=== PATIENT | male | born 1940 | race Caucasian/White ===

== ENCOUNTER 2020-11-13 14:41 | Inpatient (IN) ==
[2020-11-13] MEDS ORDERED: CEFEPIME 2,000 MG/20 ML VIAL IV STA (14:55)
[2020-11-13] MEDS ORDERED: ALBUT/IPRATROP 3MG/0.5MG NEB 3 ML VIAL NEB STA (14:55)
[2020-11-13] MEDS ORDERED: ONDANSETRON INJ 2 MG/ML 2 ML VIAL IV STA (15:05)
--- NOTE | 2020-11-13 15:06 | Emergency Department Note ---
Impression & Plan SOB (shortness of breath), Vomiting, Edema of both upper arms, Tracheostomy in place ED Provider Note NAME: ANDI MIDDLETON AGE: 80 SEX: M : 1940 ARRIVES VIA: Ambulance INFORMANT: [Patient][ems] ED PROVIDER(S): [Jama Loomis MD] CHIEF COMPLAINT: Shortness of breath HISTORY OF PRESENT ILLNESS: The patient is an 80-year-old male who is currently living with his son. He has a tracheostomy, a feeding tube and a chronic Dash. The patient states that he was treated for cellulitis, he was hospitalized for this diagnosis. As of late, he has had increasing shortness of breath. He has had some muscle and body pain and he has noticed some edema to his upper extremities. Today, he seemed short of breath. He was brought by ambulance for evaluation. The patient complains of pain all over at present. He has had some shortness of breath and cough. He thinks he has had some fevers. He states that his urine turned color today, it seemed bloody. He also began vomiting today. No known Covid exposures, he did test negative for Covid a few weeks ago. REVIEW OF SYSTEMS: See HPI for pertinent positives and negatives. A total of ten systems were reviewed and were otherwise negative. PMHx/PSHx: See Below SOCIAL HISTORY: See Below. PHYSICAL EXAM: GENERAL: Patient is in no acute distress. HEENT: No acute trauma, normocephalic atraumatic, mucous membranes dry, no nasal congestion, no scleral icterus. NECK: No stridor, there is a tracheostomy in place. LUNGS: There are some crackles and scant wheezing noted bilaterally. No current respiratory distress. HEART: Tachycardic, irregular rhythm, no obvious murmur. ABDOMEN: Soft, nontender, bowel sounds positive, no hernias, no peritonitis. There is a feeding tube in the left upper quadrant. EXTREMITIES: No cyanosis. The patient has chronic skin changes to both lower extremities, no current erythema to suggest lower extremity cellulitis. He does have upper extremity edema from his wrist to his elbows. This is bilateral. NEUROLOGIC: Oriented x 3, no acute motor or sensory deficits, no focal weakness. SKIN: No rash, no jaundice, no diaphoresis. DIFFERENTIAL DIAGNOSIS: Sepsis, UTI, pneumonia, metabolic, electrolyte abnormalities, aspiration, DVT or PE, cardiac sources, intracerebral event, toxicologic, neurologic, as well as other pathologies. EMERGENCY DEPARTMENT COURSE/PROCEDURES: ECG: Indication was weakness and shortness of breath. The ECG shows what appears to be atrial fibrillation. There is an old septal infarct. The rate is 100. There is no ST elevation, no PVCs. The QTc is 477. No old EKGs available for comparison. Continuous Cardiac Monitoring: An order was placed for continuous cardiac monitoring. The monitor shows a rate of 93 with atrial fibrillation. Critical Care Note: I have personally spent 43 minutes of critical care time in the direct management of this patient. This includes bedside care, interpretation of diagnostic studies, and testing, discussion with consultants, patient, and family members, and other required patient management activities. This 43 minutes is in excess of all separately billable procedures. MEDICAL DECISION MAKING: There is no leukocytosis. The patient is anemic but this value is not in need of emergent correction. There is a normal platelet count. There is no coagulopathy. No kidney failure, the BUN was slightly elevated. Lactic acid level was not elevated making sepsis less likely. No concerning liver enzyme elevation. ECG shows atrial fibrillation, no acute ischemia. Cardiac enzyme testing x1 is not consistent with acute cardiac injury. Urinalysis shows contamination from the chronic Dash versus infection. Influenza and Covid testing returned negative. Chest film shows a effusion on the right, no obvious pneumonia. The patient presents with some vomiting, increasing shortness of breath and some dark-colored urine. He received IV cefepime as empiric antibiotic coverage. He was given IV Zofran for his nausea, he was given a DuoNeb through his tracheostomy. Respiratory did come to bedside and dealt with any suctioning issues. Patient is in need of a hospital stay. He has a large effusion on the right which I think may be causing his dyspnea. He was vomiting earlier before arrival and certainly may have aspirated. He does have edema of both upper extremities, the cause is unclear, I have ordered for an ultrasound of both upper arms to rule out DVT--results pending. Patient clearly is in need of a hospital stay. I did speak with case management, I spoke with the patient, the on-call hospitalist was consulted. The patient is currently doing well, his heart rate has decreased, his blood pressure has remained adequate. He is saturating well on his typical respiratory support via tracheostomy. Past Med/Surg History Medical History Atrial fibrillation Tracheostomy in place Social History Smoking Status: Never smoker Feels Safe at Home: Yes Gender Identity: Male Allergies Allergies Allergy/AdvReac Type Severity Reaction Status Date / Time oxycodone AdvReac Intermediate Hallucinati Verified 11/13/20 15:00 ons NARCOTICS AdvReac POSSIBLE Uncoded 11/13/20 16:41 HALLUCINATIONS Home Meds Home Medications Medication Instructions Recorded Confirmed acetaminophen [Tylenol Extra 500 mg PO QID 11/13/20 11/13/20 Strength] albuterol sulfate 2.5 mg INHALATION Q4H PRN 11/13/20 11/13/20 bisacodyl 10 mg FEEDING TUBE QAM PRN 11/13/20 11/13/20 furosemide [Lasix] 40 mg FEEDING TUBE QAM 11/13/20 11/13/20 guaifenesin 200 mg PO TID 11/13/20 11/13/20 ibuprofen 400 mg PO TID PRN 11/13/20 11/13/20 ipratropium-albuterol 3 ml INHALATION QID 11/13/20 11/13/20 methimazole 2.5 mg PO DAILY 11/13/20 11/13/20 ondansetron [Zofran ODT] 4 mg TRANSLINGUAL Q4 PRN 11/13/20 11/13/20 pantoprazole 20 mg PO DAILY 11/13/20 11/13/20 polyethylene glycol 3350 [Miralax] 17 g FEEDING TUBE DAILY PRN 11/13/20 11/13/20 sennosides [senna] 8.6 mg PO HS PRN 11/13/20 11/13/20 sertraline 100 mg FEEDING TUBE DAILY 11/13/20 11/13/20 simethicone 80 mg PO TID PRN 11/13/20 11/13/20 Results & Data (ED) Vital Signs Vital Signs - 24 hr 11/13/20 14:49 11/13/20 14:50 11/13/20 15:13 Temperature 37.1 C Temperature Source Oral Pulse Rate 103 H 105 H Pulse Rate [Right Finger] Pulse Rate from SpO2 Sensor 108 H Pulse Rhythm Regular Pulse Strength Normal Respiratory Rate 20 24 Respiratory Effort / Characteristics Accessory Muscle Use Grunting Labored Respiratory Pattern Regular Blood Pressure 120/60 120/60 Blood Pressure Mean 68 80 Blood Pressure Position Lying Pulse Oximetry 98 96 93 Oxygen Delivery Method Nasal Cannula Mechanical Vent Oxygen Flow Rate 4 Sepsis Recent Fever Within 48 Hours Yes Sepsis New/Unexplained Change in Mental Status No Sepsis Action Taken by Nursing No Action Required 11/13/20 15:16 11/13/20 15:17 11/13/20 15:18 Temperature Temperature Source Pulse Rate 93 H Pulse Rate [Right Finger] 93 H Pulse Rate from SpO2 Sensor Pulse Rhythm Pulse Strength Respiratory Rate 14 Respiratory Effort / Characteristics Spontaneous Labored Short of Breath Respiratory Pattern Blood Pressure Blood Pressure Mean Blood Pressure Position Pulse Oximetry 93 100 93 Oxygen Delivery Method Mechanical Vent Mechanical Vent Mechanical Vent Oxygen Flow Rate 4 4 4 Sepsis Recent Fever Within 48 Hours Sepsis New/Unexplained Change in Mental Status Sepsis Action Taken by Nursing 11/13/20 15:20 11/13/20 15:31 11/13/20 16:00 Temperature Temperature Source Pulse Rate 106 H 97 H 98 H Pulse Rate [Right Finger] Pulse Rate from SpO2 Sensor 103 H 96 H 101 H Pulse Rhythm Pulse Strength Respiratory Rate Respiratory Effort / Characteristics Respiratory Pattern Blood Pressure 102/27 L 106/27 L 102/45 L Blood Pressure Mean 33 45 62 Blood Pressure Position Pulse Oximetry 99 98 99 Oxygen Delivery Method Mechanical Vent Mechanical Vent Oxygen Flow Rate Sepsis Recent Fever Within 48 Hours Sepsis New/Unexplained Change in Mental Status Sepsis Action Taken by Nursing 11/13/20 16:35 Temperature Temperature Source Pulse Rate 93 H Pulse Rate [Right Finger] Pulse Rate from SpO2 Sensor 93 H Pulse Rhythm Pulse Strength Respiratory Rate Respiratory Effort / Characteristics Respiratory Pattern Blood Pressure 102/60 Blood Pressure Mean 69 Blood Pressure Position Pulse Oximetry 99 Oxygen Delivery Method Mechanical Vent Oxygen Flow Rate Sepsis Recent Fever Within 48 Hours Sepsis New/Unexplained Change in Mental Status Sepsis Action Taken by Long-Term Medications Current Medication List: was personally reviewed by me Laboratory Data Attestation: I reviewed the patient's lab results. Result diagrams: 11/13/20 14:55 11/13/20 15:44 Lab Results 11/13/20 11/13/20 11/13/20 Range/Units 13:30 14:55 14:55 WBC 7.20 (4.8-10.8) K/uL RBC 2.98 L (4.7-6.1) M/uL Hgb 9.3 L (14.0-18.0) g/dL Hct 30.0 L (42-52) % MCV 100.7 H (80-100) fL MCH 31.2 (25-34) pg MCHC 31.0 L (32-36) g/dL RDW Std Deviation 53.4 H (36.4-46.3) fL RDW Coeff of Otoniel 14.6 H (11.5-14.5) % Plt Count 168 (130-400) K/uL MPV 11.2 H (7.4-10.4) fL Immature Gran % (Auto) 0.0 % Neut % (Auto) 82.9 % Lymph % (Auto) 9.4 % [place] % (Auto) 6.9 % Eos % (Auto) 0.7 % Baso % (Auto) 0.1 % Neut # (Auto) 5.96 (1.4-6.5) K/uL Lymph # (Auto) 0.68 L (1.2-3.4) K/uL [place] # (Auto) 0.50 (0.11-0.59) K/uL Eos # (Auto) 0.05 (0-0.5) K/uL Baso # (Auto) 0.01 (0-0.2) K/uL Immature Gran # (Auto) 0.00 (0.00-0.02) K/uL PT 10.9 (9.0-12.0) Seconds INR 1.0 (0.9-1.1) APTT 30.8 (21.0-31.0) Seconds PTT Ratio 1.1 Sodium (136-145) mmol/L Potassium (3.5-5.1) mmol/L Chloride (98-107) mmol/L Carbon Dioxide (21-32) mmol/L Anion Gap (3-11) BUN (7-18) mg/dl Creatinine (0.6-1.4) mg/dl Est Cr Clr Drug Dosing ml/min Est GFR ( Amer) Est GFR (Non-Af Amer) BUN/Creatinine Ratio (10-20) Glucose (70-99) mg/dl Lactate (0.4-2.0) mmol/L Calcium (8.5-10.1) mg/dl Magnesium (1.8-2.4) mg/dl Total Bilirubin (0.2-1) mg/dl AST (15-37) U/L ALT (12-78) U/L Alkaline Phosphatase (45-117) U/L Total Creatine Kinase (39-308) U/L Troponin I (0-0.045) ng/ml Total Protein (6.4-8.2) gm/dl Albumin (3.4-5.0) gm/dl Globulin (2.5-4.0) gm/dl Albumin/Globulin Ratio (0.9-2) Urine Color [place] Urine Appearance Turbid A (Clear) Urine pH 7.5 (4.5-7.5) Ur Specific [place] 1.016 (1.000-1.030) Urine Protein 2+ H (Negative) Urine Glucose (UA) Negative (Negative) Urine Ketones Negative (Negative) Urine Blood 3+ H (Negative) Urine Nitrite Negative (Negative) Urine Bilirubin Negative (Negative) Urine Urobilinogen Negative (Negative) Ur Leukocyte Esterase 3+ H (Negative) Urine WBC (Auto) >30 H (0-5) /hpf Urine RBC (Auto) 10-30 H (0-4) /hpf U Hyaline Cast (Auto) 0 (0-5) /lpf U Epithel Cells (Auto) >30 H (0-5) /lpf Urine Bacteria (Auto) 4+ H (Negative) Urine Crystals Calcium Oxalate A (None Prsent) Calcium Oxalate Crystal Present A (None Prsent) Urine Yeast Budding w/ Hyphae A (None Prsent) COVID-19 Eval Order Influ A Molecular Assay (Negative) Influ B Molecular Assay (Negative) SARS-CoV-2, RNA, NAAT (NEGATIVE) 11/13/20 11/13/20 11/13/20 Range/Units 15:04 15:04 15:04 WBC (4.8-10.8) K/uL RBC (4.7-6.1) M/uL Hgb (14.0-18.0) g/dL Hct (42-52) % MCV (80-100) fL MCH (25-34) pg MCHC (32-36) g/dL RDW Std Deviation (36.4-46.3) fL RDW Coeff of Otoniel (11.5-14.5) % Plt Count (130-400) K/uL MPV (7.4-10.4) fL Immature Gran % (Auto) % Neut % (Auto) % Lymph % (Auto) % [place] % (Auto) % Eos % (Auto) % Baso % (Auto) % Neut # (Auto) (1.4-6.5) K/uL Lymph # (Auto) (1.2-3.4) K/uL [place] # (Auto) (0.11-0.59) K/uL Eos # (Auto) (0-0.5) K/uL Baso # (Auto) (0-0.2) K/uL Immature Gran # (Auto) (0.00-0.02) K/uL PT (9.0-12.0) Seconds INR (0.9-1.1) APTT (21.0-31.0) Seconds PTT Ratio Sodium (136-145) mmol/L Potassium (3.5-5.1) mmol/L Chloride (98-107) mmol/L Carbon Dioxide (21-32) mmol/L Anion Gap (3-11) BUN (7-18) mg/dl Creatinine (0.6-1.4) mg/dl Est Cr Clr Drug Dosing ml/min Est GFR ( Amer) Est GFR (Non-Af Amer) BUN/Creatinine Ratio (10-20) Glucose (70-99) mg/dl Lactate (0.4-2.0) mmol/L Calcium (8.5-10.1) mg/dl Magnesium (1.8-2.4) mg/dl Total Bilirubin (0.2-1) mg/dl AST (15-37) U/L ALT (12-78) U/L Alkaline Phosphatase (45-117) U/L Total Creatine Kinase (39-308) U/L Troponin I (0-0.045) ng/ml Total Protein (6.4-8.2) gm/dl Albumin (3.4-5.0) gm/dl Globulin (2.5-4.0) gm/dl Albumin/Globulin Ratio (0.9-2) Urine Color Urine Appearance (Clear) Urine pH (4.5-7.5) Ur Specific [place] (1.000-1.030) Urine Protein (Negative) Urine Glucose (UA) (Negative) Urine Ketones (Negative) Urine Blood (Negative) Urine Nitrite (Negative) Urine Bilirubin (Negative) Urine Urobilinogen (Negative) Ur Leukocyte Esterase (Negative) Urine WBC (Auto) (0-5) /hpf Urine RBC (Auto) (0-4) /hpf U Hyaline Cast (Auto) (0-5) /lpf U Epithel Cells (Auto) (0-5) /lpf Urine Bacteria (Auto) (Negative) Urine Crystals (None Prsent) Calcium Oxalate Crystal (None Prsent) Urine Yeast (None Prsent) COVID-19 Eval [facility] Influ A Molecular Assay Negative (Negative) Influ B Molecular Assay Negative (Negative) SARS-CoV-2, RNA, NAAT NEGATIVE (NEGATIVE) 11/13/20 11/13/20 Range/Units 15:44 15:44 WBC (4.8-10.8) K/uL RBC (4.7-6.1) M/uL Hgb (14.0-18.0) g/dL Hct (42-52) % MCV (80-100) fL MCH (25-34) pg MCHC (32-36) g/dL RDW Std Deviation (36.4-46.3) fL RDW Coeff of Otoniel (11.5-14.5) % Plt Count (130-400) K/uL MPV (7.4-10.4) fL Immature Gran % (Auto) % Neut % (Auto) % Lymph % (Auto) % [place] % (Auto) % Eos % (Auto) % Baso % (Auto) % Neut # (Auto) (1.4-6.5) K/uL Lymph # (Auto) (1.2-3.4) K/uL [place] # (Auto) (0.11-0.59) K/uL Eos # (Auto) (0-0.5) K/uL Baso # (Auto) (0-0.2) K/uL Immature Gran # (Auto) (0.00-0.02) K/uL PT (9.0-12.0) Seconds INR (0.9-1.1) APTT (21.0-31.0) Seconds PTT Ratio Sodium 137 (136-145) mmol/L Potassium 3.9 (3.5-5.1) mmol/L Chloride 100 (98-107) mmol/L Carbon Dioxide 32 (21-32) mmol/L Anion Gap 6.0 (3-11) BUN 50 H (7-18) mg/dl Creatinine 1.14 (0.6-1.4) mg/dl Est Cr Clr Drug Dosing 49.5 ml/min Est GFR ( Amer) 70.0 Est GFR (Non-Af Amer) 60.4 BUN/Creatinine Ratio 43.6 H (10-20) Glucose 103 H (70-99) mg/dl Lactate 0.8 (0.4-2.0) mmol/L Calcium 8.9 (8.5-10.1) mg/dl Magnesium 1.8 (1.8-2.4) mg/dl Total Bilirubin 0.3 (0.2-1) mg/dl AST 21 (15-37) U/L ALT 17 (12-78) U/L Alkaline Phosphatase 105 (45-117) U/L Total Creatine Kinase 22 L (39-308) U/L Troponin I < 0.015 (0-0.045) ng/ml Total Protein 6.8 (6.4-8.2) gm/dl Albumin 2.2 L (3.4-5.0) gm/dl Globulin 4.6 H (2.5-4.0) gm/dl Albumin/Globulin Ratio 0.5 L (0.9-2) Urine Color Urine Appearance (Clear) Urine pH (4.5-7.5) Ur Specific [place] (1.000-1.030) Urine Protein (Negative) Urine Glucose (UA) (Negative) Urine Ketones (Negative) Urine Blood (Negative) Urine Nitrite (Negative) Urine Bilirubin (Negative) Urine Urobilinogen (Negative) Ur Leukocyte Esterase (Negative) Urine WBC (Auto) (0-5) /hpf Urine RBC (Auto) (0-4) /hpf U Hyaline Cast (Auto) (0-5) /lpf U Epithel Cells (Auto) (0-5) /lpf Urine Bacteria (Auto) (Negative) Urine Crystals (None Prsent) Calcium Oxalate Crystal (None Prsent) Urine Yeast (None Prsent) COVID-19 Eval Order Influ A Molecular Assay (Negative) Influ B Molecular Assay (Negative) SARS-CoV-2, RNA, NAAT (NEGATIVE) Administered Medications Discontinued Medications Albuterol (Albut/Ipratrop 3mg/0.5mg Neb 3 Ml Vial) 3 ml NEB NOW STA Stop: 11/13/20 14:56 Last Admin: 11/13/20 15:15 Dose: 3 ml Documented by: [id number] Cefepime HCl (Maxipime) 2,000 mg in 20 mls @ 5 mls/min IV NOW STA; Protocol Stop: 11/13/20 14:58 Last Admin: 11/13/20 15:52 Dose: 5 mls/min Documented by: [id number] Ondansetron HCl (Ondansetron Inj 2 Mg/Ml 2 Ml Vial) 4 mg IV NOW STA Stop: 11/13/20 15:06 Last Admin: 11/13/20 15:37 Dose: 4 mg Documented by: [id number] Imaging Data Radiologist's Impression: XR chest 1V portable CLINICAL HISTORY: SEPSIS COMPARISON STUDY: No previous studies for comparison. FINDINGS: Tracheostomy tube is noted. This may be partially withdrawn. A moderate right pleural effusion is noted. There is a small left pleural effusion. Asymmetric right lung airspace opacity is noted. There is left retrocardiac opacity. No pneumothorax is present. Moderate cardiomegaly is noted with pulmonary vascular congestion. IMPRESSION: 1. Tracheostomy tube visualized, possibly partially withdrawn. This could be correlated with exam. 2. Asymmetric opacification of the right hemithorax, in part due to a moderate right pleural effusion. 3. Bibasilar consolidation. Radiographic follow-up is recommended. 4. Cardiomegaly with pulmonary vascular congestion. Discharge Plan Visit Data Chief Complaint: Shortness of Breath/Dyspnea ED Provider: Jama Loomis Discharge Problem: SOB (shortness of breath), Vomiting, Edema of both upper arms, Tracheostomy in place Patient Disposition: Admitted As Inpatient Condition: Fair Forms Stand Alone Forms: My [facility] Prescriptions Prescriptions: No Action furosemide [Lasix] 40 mg Tablet 40 mg feeding tube QAM RF: 0 sennosides [senna] 8.6 mg Tablet 8.6 mg PO HS PRN (Reason: Constipation) RF: 0 ipratropium-albuterol 0.5 mg-3 mg(2.5 mg base)/3 mL Solution For Nebulization 3 ml INHALATION QID RF: 0 albuterol sulfate 2.5 mg /3 mL (0.083 %) Solution For Nebulization 2.5 mg INHALATION Q4H PRN (Reason: Shortness Of Breath) RF: 0 polyethylene glycol 3350 [Miralax] 17 gram Powder In Packet 17 g feeding tube DAILY PRN (Reason: Constipation) RF: 0 sertraline 100 mg Tablet 100 mg feeding tube DAILY RF: 0 acetaminophen [Tylenol Extra Strength] 500 mg Tablet 500 mg PO QID RF: 0 guaifenesin 200 mg Tablet 200 mg PO TID RF: 0 pantoprazole 20 mg Tablet,Delayed Release (Dr/Ec) 20 mg PO DAILY RF: 0 ibuprofen 200 mg Tablet 400 mg PO TID PRN (Reason: Pain) RF: 0 methimazole 5 mg Tablet 2.5 mg PO DAILY RF: 0 ondansetron [Zofran ODT] 4 mg Tablet,Disintegrating 4 mg translingual Q4 PRN (Reason: Nausea) RF: 0 bisacodyl 5 mg Tablet 10 mg feeding tube QAM PRN (Reason: Constipation) RF: 0 simethicone 80 mg Tablet 80 mg PO TID PRN (Reason: GAS/BLOATING) RF: 0 Referrals Referrals: Renzo Tavarez MD [Primary Care Provider] - Discharge Problem: Vomiting Qualifiers: Vomiting type: unspecified Vomiting Intractability: non-intractable Nausea presence: with nausea Qualified Code(s): R11.2 - Nausea with vomiting, unspecified
[2020-11-13 15:27] LABS: Basophils # (auto) 0.01 K/uL (0-0.2); Basophils % (auto) 0.1 %; Eosinophils # (auto) 0.05 K/uL (0-0.5); Eosinophils % (auto) 0.7 %; Hemoglobin 9.3 g/dL (14.0-18.0); Lymphocytes # (auto) 0.68 K/uL (1.2-3.4); Lymphocytes % (auto) 9.4 %; Mean Corpuscular Hemoglobin 31.2 pg (25-34); Mean Corpuscular Volume 100.7 fL (80-100); Mean Platelet Volume 11.2 fL (7.4-10.4); Monocytes % (auto) 6.9 %; Neutrophils # (auto) 5.96 K/uL (1.4-6.5); Neutrophils % (auto) 82.9 %; Platelet Count 168 K/uL (130-400); RDW Coefficient of Variation 14.6 % (11.5-14.5); RDW Standard Deviation 53.4 fL (36.4-46.3); Red Blood Count 2.98 M/uL (4.7-6.1)
--- NOTE | 2020-11-13 15:35 | XRay Report ---
XR chest 1V portable CLINICAL HISTORY: SEPSIS COMPARISON STUDY: No previous studies for comparison. FINDINGS: Tracheostomy tube is noted. This may be partially withdrawn. A moderate right pleural effus ion is noted. There is a small left pleural effusion. Asymmetric right lung airspace opacity is noted . There is left retrocardiac opacity. No pneumothorax is present. Moderate cardiomegaly is noted with pulmonary vascular congestion. IMPRESSION: 1. Tracheostomy tube visualized, possibly partially withdrawn. This could be correlated with exam. 2. Asymmetric opacification of the right hemithorax, in part due to a moderate right pleural effusion . 3. Bibasilar consolidation. Radiographic follow-up is recommended. 4. Cardiomegaly with pulmonary vascular congestion. ACT 112: Negative or not required by law. Electronically signed by: Jeff Villatoro M.D. 11/13/2020 3:34 PM
[2020-11-13 15:41] LABS: Partial Thromboplastin Ratio 1.1; Partial Thromboplastin Time 30.8 Seconds (21.0-31.0); Prothrombin Time 10.9 Seconds (9.0-12.0)
[2020-11-13 15:48] LABS: Influenza A virus by PCR Negative (Negative); Influenza B virus by PCR Negative (Negative)
[2020-11-13 15:52] LABS: Appearance Urine Turbid (Clear); Bacteria Urine Automated 4+ (Negative); Bilirubin Urine Negative (Negative); Blood Urine 3+ (Negative); Color Urine Orange; Epithelial Cell Urine Auto >30 /lpf (0-5); Glucose Urine UA Negative (Negative); Ketones Urine Negative (Negative); Leukocyte Esterase Urine 3+ (Negative); Nitrite Urine Negative (Negative); Specific Gravity Urine 1.016 (1.000-1.030); Urobilinogen Urine Negative (Negative); WBC Urine Automated >30 /hpf (0-5); pH Urine 7.5 (4.5-7.5)
[2020-11-13 15:56] LABS: Protein Urine 2+ (Negative)
[2020-11-13 16:08] LABS: Calcium Oxalate Crystals Urine Present (None Prsent); Cast Urine Automated 0 /lpf (0-5)
[2020-11-13 16:22] LABS: Alanine Aminotransferase 17 U/L (12-78); Albumin Level 2.2 gm/dl (3.4-5.0); Aspartate Aminotransferase 21 U/L (15-37); BUN Creatinine Ratio 43.6 (10-20); Blood Urea Nitrogen 50 mg/dl (7-18); Calcium 8.9 mg/dl (8.5-10.1); Carbon Dioxide 32 mmol/L (21-32); Chloride 100 mmol/L (98-107); Creatinine Clr Calc Pharmacy 49.5 ml/min; Est GFR (Non-African American) 60.4; Glucose 103 mg/dl (70-99); Magnesium 1.8 mg/dl (1.8-2.4); Potassium 3.9 mmol/L (3.5-5.1); Sodium 137 mmol/L (136-145)
[2020-11-13 16:27] LABS: Albumin Globulin Ratio 0.5 (0.9-2); Alkaline Phosphatase 105 U/L (45-117); Bilirubin,Total 0.3 mg/dl (0.2-1); Creatine Kinase 22 U/L (39-308); Globulin 4.6 gm/dl (2.5-4.0); Total Protein 6.8 gm/dl (6.4-8.2); Troponin I < 0.015 ng/ml (0-0.045)
--- NOTE | 2020-11-13 16:47 | History & Physical Report ---
Date of Service November 13, 2020 Assessment & Plan (1) Acute and chronic respiratory failure with hypoxia: Currently on 4L O2 from baseline 2L at home. ?worsening pleural effusion, aspiration pneumonia, acute on chronic CHF. (2) Edema of both upper arms: This is the patient's main acute complaint. Suspect multifactorial with malnutrition, reduced movement, poor venous and lymphatic drainage. Do not suspect superior vena cava syndrome given lack of facial swelling. (3) Congestive heart failure: Possible mild acute exacerbation of this although family note prior diuresis causing MELANIE. Lasix 20mg IV now. Monitor BMP in AM. (4) Aspiration pneumonia: Suspected given worsening respiratory status after vomiting. Unasyn 3 g IV every 6 hourly. (5) Cellulitis: Suspect bilateral upper extremity swelling secondary to poor venous and lymphatic drainage. Difficult to rule out cellulitis of the right upper extremity however given erythema warmth and swelling here versus purely venous stasis. Cover for cellulitis with Unasyn 3 g IV every 6 hours (6) Atrial fibrillation: Chronic per patient recollection. Unclear why he is not on anticoagulation for this however. Not on rate or rhythm control. 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 Will consult pulmonology for assistance in management of this. (8) Chronic indwelling Dash catheter: No suprapubic pain to suggest UTI. Follow-up urine culture to see if it correlates with any blood culture although I do not suspect a catheter associated UTI on admission. (9) Vomiting: Monitor for recurrence. Patient reports no current nausea. Ondansetron 4 mg IV every 6 hourly as needed (10) Pleural effusion on right: Possible aspiration as he lies on his side versus congestive heart failure. Unclear whether this is acute or chronic as he appears to be close to his baseline - we will request prior imaging from [place]. Lasix 20 mg IV now, continue 40 mg via feeding tube daily. (11) Dysphagia: Clear liquids per patient request. Speech consult. (12) Hyperthyroidism: TSH 0.009 however T4 close to normal. Continue methimazole 2.5 mg p.o. daily. Chronic per patient. (13) Superficial venous thrombosis of left upper extremity: Noted on US doppler. Main acute complaint is edema on right side therefore not contributing towards this. (14) DVT prophylaxis: Will avoid chemical DVT prophylaxis pending reason he is not on anticogulation from notes from [facility]. Poor skin integrity for SCDs. Admission and Anticipated Discharge Date Admission Date: Nov 13, 2020 History of Present Illness Chief Complaint: Shortness of breath, bilateral upper extremity swelling. Primary Care Provider: Renzo Tavarez MD Luis Fernando Sam is an 80 year old male who presents to the ER with shortness of breath, bilateral upper extremity edema with associated pain. He is medically complex and new to this hospital electronic health record with a tracheostomy, feeding tube and Dash catheter after a recent 4-month hospitalization at [facility] (presumably LTAC) of which the discharge summaries are not available on admission. Therefore history is taken from the patient and both sons and is therefore incomplete. Prior to this prolonged hospitalization he reports a history of congestive heart failure (previously refused to see a service dispatcher), phlebitis (on chronic anticoagulation) and hyperthyroidism. Approximately 4 months ago he was hospitalized with a right thigh hematoma which presumably he became septic from. Unclear of the details but possibly had IV fluids causing flash pulmonary edema with right lung collapse leading to intubation. Unclear whether he had surgery to drain the right thigh hematoma but his son has been packing this wound at home. Underwent thoracocentesis with 2 L fluid removed (reportedly not hemothorax). He was unable to be extubated and underwent tracheostomy placement . He continued to be dependent on positive pressure ventilation and was subsequently transferred to [facility] in [place]. He was discharged home approximately 1 month ago to his son's house with his family taking care of his home ventilator. His PCP still manages his medication and they buy their own tube feeds. A home nurse comes in twice a week but they have been actively trying to get more help. Today his main concerns are his tracheostomy (possible has come out slightly, shortness of breath following a vomiting episode at home. His son's (Braulio) main concern is his bilateral upper extremity edema. Allergies Allergy/AdvReac Type Severity Reaction Status Date / Time oxycodone AdvReac Intermediate Hallucinati Verified 11/13/20 15:00 ons NARCOTICS AdvReac POSSIBLE Uncoded 11/13/20 16:41 HALLUCINATIONS Home Medications Medication Instructions Recorded Confirmed Type acetaminophen [Tylenol Extra 500 mg PO QID 11/13/20 11/13/20 History Strength] albuterol sulfate 2.5 mg INHALATION Q4H PRN 11/13/20 11/13/20 History bisacodyl 10 mg FEEDING TUBE QAM PRN 11/13/20 11/13/20 History furosemide [Lasix] 40 mg FEEDING TUBE QAM 11/13/20 11/13/20 History guaifenesin 200 mg PO TID 11/13/20 11/13/20 History ibuprofen 400 mg PO TID PRN 11/13/20 11/13/20 History ipratropium-albuterol 3 ml INHALATION QID 11/13/20 11/13/20 History methimazole 2.5 mg PO DAILY 11/13/20 11/13/20 History ondansetron [Zofran ODT] 4 mg TRANSLINGUAL Q4 PRN 11/13/20 11/13/20 History pantoprazole 20 mg PO DAILY 11/13/20 11/13/20 History polyethylene glycol 3350 [Miralax] 17 g FEEDING TUBE DAILY PRN 11/13/20 11/13/20 History sennosides [senna] 8.6 mg PO HS PRN 11/13/20 11/13/20 History sertraline 100 mg FEEDING TUBE DAILY 11/13/20 11/13/20 History simethicone 80 mg PO TID PRN 11/13/20 11/13/20 History Past Med/Surg History Medical History (Updated 11/14/20 @ 12:53 by Andrea Pino MD) Atrial fibrillation Cellulitis Chronic indwelling Dash catheter Congestive heart failure Hematoma of right thigh History of lipoma Hyperthyroidism Phlebitis Recurrent UTI Tracheostomy in place Surgical History (Updated 11/13/20 @ 22:20 by Andrea Pino MD) History of cholecystectomy History of thoracentesis History of tracheostomy Social History Smoking Status: Never smoker Hx Alcohol Use: No Hx Substance Use: No Preferred Language: Swedish Communication Ability: Effective Communication Ability Comment: Tracheostomy with ability to speak Route Jumper Required: No Beliefs That Will Affect Care: Denominational Denominational Beliefs: Yarsanism Current Living Situation: Family Other Information That Helps Us Care for You: No Feels Safe at Home: Yes Safety Concerns: Feels Safe At This Time Gender Identity: Male Assistive Devices Comment: Home Ventilator Review of Systems Review of Systems: All systems reviewed & are unremarkable except as noted in HPI & below Physical Exam Constitutional: + ill appearing (chronically) and + frail appearing; + not well nourished, no acute distress and no altered mental status Eyes: + anicteric sclerae; normal pupil size ENMT: Mouth: + dry oral mucous membranes Neck: trachea midline Respiratory: Auscultation: + rhonchi (bilaterally, R > L); no wheezes Cardiovascular: Rate/Rhythm: + tachycardic and + irregularly irregular Heart Sounds: no murmur Vessels: no JVD Extremities: + edema (3+ bilateral lower extremities) Gastrointestinal (Abdomen): Inspection/Auscultation: abdomen normal to inspection (Feeding tube in place without surrounding cellulitis) and normal bowel sounds Percussion/Palpation: abdomen soft; abdomen nontender, no guarding and abdomen not rigid Skin: + erythema (and swelling just proximal to right elbow) Neurologic: moves all extremities and awake; no focal motor deficits (generalized weakness, bed bound) and not confused Psychiatric: Orientation: alert and oriented x 3 Results & Data Results & Data ([facility]) Vital Signs (Past 12 Hours) Vital Signs Temp Pulse Pulse Resp BP Pulse Ox 11/13/20 16:35 93 H 102/60 99 11/13/20 16:00 98 H 102/45 L 99 11/13/20 15:31 97 H 106/27 L 98 11/13/20 15:20 106 H 102/27 L 99 11/13/20 15:18 93 11/13/20 15:17 93 H 93 H 14 100 11/13/20 15:16 93 11/13/20 15:13 24 93 11/13/20 14:50 37.1 C 105 H 20 120/60 96 11/13/20 14:49 103 H 120/60 98 Diagnostic Findings XR chest 1V portable IMPRESSION: 1. Tracheostomy tube visualized, possibly partially withdrawn. This could be correlated with exam. 2. Asymmetric opacification of the right hemithorax, in part due to a moderate right pleural effusion. 3. Bibasilar consolidation. Radiographic follow-up is recommended. 4. Cardiomegaly with pulmonary vascular congestion. US venous doppler UE BI IMPRESSION: 1. Limited exam as above. 2. Partially occlusive superficial venous thrombus of the left cephalic vein. ECG Indication: tachycardia Rate (beats per minute): 100 Rhythm: atrial fibrillation Findings: no acute ischemic change Comparison ECG Date: no prior available Code Status & VTE Plan Code Status Full as discussed with the patient VTE Prophylaxis Plan VTE Prophylaxis will be ordered: No Reason for no VTE drug order: Contraindicated (Deferred pending further information from previous hospitalizations) Reason for no VTE mechanical prophylaxis: Treatment not tolerated (Poor skin integrity) PG Care Time/CCT Total # of Minutes Spent Total Time Spent with Patient: Total time spent is greater than 50% in coordination of care (as documented) at patient's floor/unit and/or counseling patient: Coding Level of Care Code 24556 Initial Inpt Care Lvl 3 Diagnoses Acute and chronic respiratory failure with hypoxia J96.21 Edema of both upper arms R60.0 Congestive heart failure I50.9 Aspiration pneumonia J69.0 Cellulitis L03.90 Atrial fibrillation I48.[address] Z93.0 Chronic indwelling Dash catheter Z97.8 Vomiting R11.2 Nausea presence: with nausea Vomiting Intractability: non-intractable Vomiting type: unspecified Pleural effusion on right J90 Dysphagia R13.10 Hyperthyroidism E05.90 Superficial venous thrombosis of left upper extremity I82.612 DVT prophylaxis Z29.9 (1) Vomiting Nausea presence: with nausea Vomiting Intractability: non-intractable Vomit ing type: unspecified Qualified Code(s): R11.2 - Nausea with vomiting, unspecified
--- NOTE | 2020-11-13 17:28 | Ultrasound Report ---
US venous doppler UE BI HISTORY: 80 years-old Male swelling acute pain and swelling of the upper extremities COMPARISON: None TECHNIQUE: Multiple real-time sonographic images of the bilateral upper extremity deep venous structu res were obtained assessing grayscale appearance, color and spectral flow FINDINGS: Limited exam secondary to diffuse subcutaneous edema. Superficial venous thrombus noted within the le ft proximal cephalic vein which is partially occlusive and appears to be long segment for a length of greater than 5 cm. The right internal jugular, ulnar veins, proximal and mid cephalic vein are not d iagnostically visualized. Normal flow and phasicity of the visualized deep venous structures bilmatthieua andrez. IMPRESSION: 1. Limited exam as above. 2. Partially occlusive superficial venous thrombus of the left cephalic vein. ACT 112: Negative or not required by law. The above report was generated using voice recognition software. It may contain grammatical, syntax o r spelling errors. Electronically signed by: Bar Richard M.D. 11/13/2020 5:27 PM
[2020-11-13] MEDS ORDERED: POLYETHYLENE (MIRALAX) 17 GM PACK GT PRN (20:08)
[2020-11-13] MEDS ORDERED: SENNOSIDES 8.8 MG/5 ML UDC PO PRN (20:28)
[2020-11-13] MEDS ORDERED: SIMETHICONE 40 MG/0.6 ML 30ML PO PRN (20:29)
[2020-11-13] MEDS ORDERED: FUROSEMIDE 20 MG in SYRINGE 0 ML IV ONE (20:35)
[2020-11-13] MEDS ORDERED: bisacodyL 10 MG SUPP PR PRN (20:38)
[2020-11-13] MEDS: ALBUT/IPRATROP 3MG/0.5MG NEB 3 ML VIAL INH SCH (20:43)
[2020-11-13] MEDS ORDERED: FUROSEMIDE 40 MG/4 ML VIAL IV ONE (20:45)
[2020-11-13] MEDS ORDERED: APIXABAN 5 MG TABLET PO SCH (21:00)
[2020-11-13 21:10] LABS: Thyroid Stimulating Hormone 0.009 uIu/ml (0.300-4.500)
[2020-11-13] MEDS: AMPICILLIN/SULBACTAM SOD 3,000 MG in 0.9 % SODIUM CHLORIDE 100 ML IV SCH (21:13)
[2020-11-13] MEDS: guaiFENesin SUGAR FREE 200 MG/10 ML UDC PEG SCH (21:15)
[2020-11-13] MEDS: ACETAMINOPHEN 500 MG TAB PO SCH (21:15)
[2020-11-13 21:23] LABS: T4 Free Thyroxine 1.61 ng/dl (0.8-1.6)
[2020-11-13] MEDS: ONDANSETRON INJ 2 MG/ML 2 ML VIAL IV PRN (22:15)
[2020-11-14] MEDS: AMPICILLIN/SULBACTAM SOD 3,000 MG in 0.9 % SODIUM CHLORIDE 100 ML IV SCH ×4 (03:50→21:40)
[2020-11-14 05:27] LABS: Basophils # (auto) 0.01 K/uL (0-0.2); Basophils % (auto) 0.2 %; Eosinophils # (auto) 0.04 K/uL (0-0.5); Eosinophils % (auto) 0.7 %; Hematocrit (blood only) 29.1 % (42-52); Hemoglobin 8.9 g/dL (14.0-18.0); Lymphocytes # (auto) 0.69 K/uL (1.2-3.4); Lymphocytes % (auto) 11.8 %; Mean Corpuscular Hemoglobin 30.4 pg (25-34); Mean Corpuscular Hgb Conc 30.6 g/dL (32-36); Mean Corpuscular Volume 99.3 fL (80-100); Mean Platelet Volume 10.9 fL (7.4-10.4); Monocytes # (auto) 0.48 K/uL (0.11-0.59); Monocytes % (auto) 8.2 %; Neutrophils # (auto) 4.62 K/uL (1.4-6.5); Neutrophils % (auto) 79.1 %; Platelet Count 148 K/uL (130-400); RDW Coefficient of Variation 14.4 % (11.5-14.5); Red Blood Count 2.93 M/uL (4.7-6.1); White Blood Count 5.84 K/uL (4.8-10.8)
[2020-11-14 06:04] LABS: BUN Creatinine Ratio 48.5 (10-20); Calcium 8.4 mg/dl (8.5-10.1); Creatinine Clr Calc Pharmacy 51.1 ml/min; Est GFR (African American) 78.2; Est GFR (Non-African American) 67.5; Potassium 3.4 mmol/L (3.5-5.1)
--- NOTE | 2020-11-14 06:57 | Electrocardiogram Report ---
Test Reason : Blood Pressure : / mmHG Vent. Rate : 100 BPM Atrial Rate : 098 BPM P-R Int : 000 ms QRS Dur : 094 ms QT Int : 370 ms P-R-T Axes : 000 -16 107 degrees QTc Int : 477 ms Atrial fibrillation Low voltage QRS Septal infarct , age undetermined Abnormal ECG No previous ECGs available Confirmed by Irving Noble ([id number]) on 11/14/2020 6:57:01 AM Referred By: REFERRED SELF Confirmed By:Irving Noble
[2020-11-14] MEDS: ALBUT/IPRATROP 3MG/0.5MG NEB 3 ML VIAL INH SCH ×4 (07:15→19:27)
[2020-11-14] MEDS: methIMAzole 5 MG TABLET PO SCH (07:39)
[2020-11-14] MEDS: ACETAMINOPHEN 500 MG TAB PO SCH ×4 (07:41→21:40)
[2020-11-14] MEDS: LANSOPRAZOLE 30 MG SOLTAB NG SCH (07:44)
[2020-11-14] MEDS: guaiFENesin SUGAR FREE 200 MG/10 ML UDC PEG SCH ×3 (07:44→22:06)
--- NOTE | 2020-11-14 10:05 | CT Scan Report ---
CT chest diagnostic wo con CT DOSE: 617.27 mGycm CLINICAL HISTORY: 80 years-old Male with effusion/PNA. Acute shortness of breath with pneumonia TECHNIQUE: Multiaxial CT images of the chest were performed without contrast. A dose lowering techni que was utilized adhering to the principles of ALARA. COMPARISON: None. FINDINGS: The study is limited secondary to positioning and lack of IV contrast. Partially calcified 5.7 x 4.6 cm mass of the right neck is suggestive of thyroid goiter. There are a few enlarged subcari nal lymph nodes measure up to 1.4 cm. Moderate cardiomegaly with small pericardial effusion. Extensiv e coronary artery calcifications. Ectasia of the ascending thoracic aorta, 3.9 cm with mild calcified plaque. Dilated main pulmonary artery, 4.0 cm. Small left and moderate right pleural effusions. No p neumothorax. Mild intralobular septal thickening. Dependent bibasilar consolidation. Additionally, th ere are a few patchy consolidative opacities of the superior segment left lower lobe. There is atelec tasis involving the majority of the right lower lobe. Tracheobronchial secretions. Tracheostomy cannu la turbinates well above the level of the leonides. There are a few nonobstructing right-sided renal calculi measuring up to 4 mm. There is a 1.7 cm calc ulus in the left renal pelvis. No significant associated obstructive uropathy. Cholecystectomy. Gastr ostomy tube. Anasarca. There is edema within the left trapezius distribution with possible intramuscu lar hematoma measuring up to 6.1 x 4.7 cm. Demineralized appearance of the bones. Multiple age-indete rminate compression deformities of the spine, most pronounced at T11. Degenerative changes of the ania ulders and spine. IMPRESSION: 1. Limited exam as above. 2. Cardiomegaly with pulmonary edema, small left and moderate right pleural effusions. 3. Dependent bibasilar consolidation with atelectasis involving the majority of the right lower lobe. 4. Mild nodular consolidative opacities of the superior segment left lower lobe are suspicious for an infectious or inflammatory pneumonitis. 5. Mild subcarinal adenopathy, likely reactive. 6. Probable pulmonary artery hypertension. 7. Bilateral nephrolithiasis includes a 1.6 cm calculus of the left renal pelvis. ACT 112: Negative or not required by law. Electronically signed by: Bar Richard M.D. 11/14/2020 10:03 AM
[2020-11-14] MEDS: SERTRALINE HCL 100 MG TABLET PEG SCH (12:23)
[2020-11-14] MEDS: SIMETHICONE 80 MG CHEW PO PRN ×2 (13:01→23:50)
[2020-11-14] MEDS ORDERED: POTASSIUM CHLORIDE CRTAB 20 MEQ TABCR PO SCH (14:00)
[2020-11-14] MEDS: POTASSIUM CHLORIDE 20 MEQ/15 ML UDC GT SCH ×2 (14:13→21:41)
[2020-11-14] MEDS: ALUMINUM/MAGNESIUM SUSP 30 ML UDC PO PRN (16:03)
[2020-11-14] MEDS ORDERED: PEPTAMEN 1.5 CAL 1,000 ML BAG GT SCH (16:15)
[2020-11-14] MEDS: FUROSEMIDE 40 MG in SYRINGE 0 ML IV SCH (16:28)
--- NOTE | 2020-11-14 17:11 | Pulmonary Consultation ---
Date of Consultation November 14, 2020 Assessment & Plan (1) Pleural effusion on right: CT chest 11/14/2020 personally reviewed: Bilateral pleural effusion, more on the right side, right lower lobe collapse/atelectasis interlobular thickening, elevated right hemidiaphragm cardiomegaly Minimal mediastinal lymphadenopathy, Nonspecific --Vent dependent respiratory failure/trach dependent Multifactorial Etiology could be prolonged intubation on top of heart failure Patient also has right lower lobe collapse/atelectasis with prolonged stay in the hospital Continue with vent support for the time being Aggressive suctioning and chest PT would be recommended Try weaning of the vent as much as possible. COVID-19 PCR 11/13/2020 -ve, nasal MRSA positive --Bilateral pleural effusion More on the right side NT BNP 4871 Etiology is most likely underlying CHF Would recommend continue with diuresis Patient is already on ventilator. If there is no improvement in the pleural effusion with diuresis will think about thoracentesis on the right side Protein calorie malnutrition with albumin of only 2.2 is also playing a role in the effusion as well as anasarca --Right upper extremity swelling Right upper extremity Doppler was ordered but it was a limited study Unsure if DVT has been ruled out --Right lower lobe atelectasis/collapse Aggressive suctioning, continue with mucolytic and expectorant. Would recommend keeping the patient on the left side Plan: Diuresis to keep the patient negative balance. I started the patient on Lasix 40 mg on a daily basis. Monitor BUNs/creatinine If there is no improvement in the pleural effusion after it adequate diuresis will think about thoracentesis For the right lower lobe atelectasis/collapse will increase the PEEP to 8, aggressive suctioning Keep the patient on the left side. Will think about doing a bronchoscopy if there is no improvement. Will need the records from the patient's previous hospitalization to see what procedures were done for the right lower lobe collapse and the true reasoning behind the patient being trach dependent Recommend physical therapy on the patient Nutritional consult should be obtained Urine is dirty but patient has chronic indwelling catheter. Would recommend changing it if not already done during the stay and repeating UA Follow procalcitonin. If it is negative the likelihood of pneumonia is low. Would recommend of the atypical coverage at that time. Please note the above document was generated using voice recognition software. It may contain grammatical, syntax or spelling errors.Any formal questions or concerns about the content, text or information contained within the body of this dictation should be directly addressed to the provider for clarification. (2) Tracheostomy dependence: (3) Ventilator dependent: History of Present Illness Attending Physician: Juvenal Lozano History of Present Illness 80-year-old male with trach dependent respiratory failure connected to a ventilator. Patient has been on the vent since his acute visit 4 months ago at a different hospital. He was subsequently discharged to an LTAC in [place]. He was discharged from there approximately a month ago and has been taken care of by patient's son. Patient also has history of thoracentesis with removal of approximately 2 L of fluid in the right side. Past medical history: Hyperthyroidism on methimazole, heart failure Pulmonary were consulted because of trach dependent respiratory failure as well as pleural effusion. At the time of examination patient was connected to his home ventilator. He was still able to talk through the trach. He was saturating well. He complained of mild shortness of breath. Denied any chest pain, no dizziness. Did complain of generalized body pain. He grimaces even on touching him. His main complaint was swelling in his right hand. He denies any fever or chills at home. History obtained from H&P and ER visit. Allergies Allergy/AdvReac Type Severity Reaction Status Date / Time oxycodone AdvReac Intermediate Hallucinati Verified 11/13/20 15:00 ons NARCOTICS AdvReac POSSIBLE Uncoded 11/13/20 16:41 HALLUCINATIONS Home Medications Medication Instructions Recorded Confirmed Type acetaminophen [Tylenol Extra 500 mg PO QID 11/13/20 11/13/20 History Strength] albuterol sulfate 2.5 mg INHALATION Q4H PRN 11/13/20 11/13/20 History bisacodyl 10 mg FEEDING TUBE QAM PRN 11/13/20 11/13/20 History furosemide [Lasix] 40 mg FEEDING TUBE QAM 11/13/20 11/13/20 History guaifenesin 200 mg PO TID 11/13/20 11/13/20 History ibuprofen 400 mg PO TID PRN 11/13/20 11/13/20 History ipratropium-albuterol 3 ml INHALATION QID 11/13/20 11/13/20 History methimazole 2.5 mg PO DAILY 11/13/20 11/13/20 History ondansetron [Zofran ODT] 4 mg TRANSLINGUAL Q4 PRN 11/13/20 11/13/20 History pantoprazole 20 mg PO DAILY 11/13/20 11/13/20 History polyethylene glycol 3350 [Miralax] 17 g FEEDING TUBE DAILY PRN 11/13/20 11/13/20 History sennosides [senna] 8.6 mg PO HS PRN 11/13/20 11/13/20 History sertraline 100 mg FEEDING TUBE DAILY 11/13/20 11/13/20 History simethicone 80 mg PO TID PRN 11/13/20 11/13/20 History Patient History Medical History (Updated 11/14/20 @ 16:58 by Aki Ghosh MD) Atrial fibrillation Cellulitis Chronic indwelling Dash catheter Congestive heart failure Hematoma of right thigh History of lipoma Hyperthyroidism Phlebitis Recurrent UTI Tracheostomy in place Surgical History History of cholecystectomy History of thoracentesis History of tracheostomy Social History Smoking Status: Never smoker Hx Alcohol Use: No Hx Substance Use: No Preferred Language: Danish Communication Ability: Effective Communication Ability Comment: Tracheostomy with ability to speak Business Intelligence Manager Required: No Beliefs That Will Affect Care: Shinto Shinto Beliefs: Denominational Current Living Situation: Family Other Information That Helps Us Care for You: No Feels Safe at Home: Yes Safety Concerns: Feels Safe At This Time Gender Identity: Male Assistive Devices Comment: Home Ventilator Review of Systems Review of Systems: All systems reviewed & are unremarkable except as noted in HPI & below Physical Exam Physical Exam: Constitutional: No acute distress HEENT: EOMI, PERRLA, positive trach Respiratory system: Decreased air entry bilaterally, more decreased on the right side, positive crackles bilateral lower lobes, no wheeze, no rhonchi CVS: S1-S2 positive Abdomen: Soft, nontender, nondistended, positive bowel sounds x4 Extremities: +2 pulses bilaterally radialis/ dorsalis pedis, +2 pitting edema right upper extremity, +1 left upper extremity and bilateral lower extremity, chronic venous changes appreciated bilateral lower extremity, anasarca Neuro: Awake alert oriented to self and place and time Psych: Normal mood and affect G/U: Positive Dash Skin: Macerated, pigmentation changes appreciated bilateral lower extremity as well as ecchymosis appreciated upper extremity dorsal surface Lymphatic: no cervical or axillary lymphadenopathy Results & Data Results & Data ([facility]) Vital Signs (Past 12 Hours) Vital Signs Temp Pulse Pulse Pulse Resp BP BP 11/14/20 15:41 36.7 C 86 22 162/80 H 11/14/20 15:40 85 18 11/14/20 11:50 79 18 11/14/20 11:36 36.7 C 80 18 146/55 H 11/14/20 07:54 36.3 C L 87 19 105/50 L 11/14/20 07:19 84 18 11/14/20 05:35 84 19 101/69 11/14/20 05:30 79 16 11/14/20 05:18 82 14 94/48 L 11/14/20 05:00 83 20 Pulse Ox 11/14/20 15:41 100 11/14/20 15:40 100 11/14/20 11:50 98 11/14/20 11:36 99 11/14/20 07:54 94 11/14/20 07:19 97 11/14/20 05:35 98 11/14/20 05:30 98 11/14/20 05:18 96 11/14/20 05:00 97 11/14/20 04:37 11/14/20 04:37 PG Care Time/CCT Total # of Minutes Spent Total Time Spent with Patient: Total time spent is greater than 50% in coordination of care (as documented) at patient's floor/unit and/or counseling patient: Coding Level of Care Code 14278 Initial Inpt Care Lvl 3 Diagnoses Pleural effusion on right J90 Tracheostomy dependence Z93.0 Ventilator dependent Z99.11
--- NOTE | 2020-11-14 22:36 | Hospitalist Progress Note ---
Date of Service November 14, 2020 Assessment & Plan (1) Acute and chronic respiratory failure with hypoxia: Patient is admitted with acute on chronic respiratory failure with hypoxia Liley multifactorial but main culprit is from fluid overload and bilateral pleural effusions. Patient is requiring vent support through trach. May require thoracocenthesis. Patient is currently getting diuresis. Will maintain a negative balance. (2) Edema of both upper arms: This is the patient's main acute complaint. Suspect multifactorial with malnutrition, reduced movement, poor venous and lymphatic drainage. Do not suspect superior vena cava syndrome given lack of facial swelling. Will see if this improves as we decrease the edema. (3) Congestive heart failure: Possible mild acute exacerbation of this although family note prior diuresis causing MELANIE. will continue with lasix 40 mg daily. (4) Aspiration pneumonia: Suspected given worsening respiratory status after vomiting. Unasyn 3 g IV every 6 hourly. (5) Cellulitis: Suspect bilateral upper extremity swelling secondary to poor venous and lymphatic drainage. Difficult to rule out cellulitis of the right upper extremity however given erythema warmth and swelling here versus purely venous stasis. Cover for cellulitis with Unasyn 3 g IV every 6 hours (6) Atrial fibrillation: Chronic per patient recollection. Unclear why he is not on anticoagulation for this however. Not on rate or rhythm control. 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 Will consult pulmonology for assistance in management of this. (8) Chronic indwelling Dash catheter: No suprapubic pain to suggest UTI. Follow-up urine culture to see if it correlates with any blood culture although I do not suspect a catheter associated UTI on admission. (9) Vomiting: Monitor for recurrence. Patient reports no current nausea. Ondansetron 4 mg IV every 6 hourly as needed (10) Pleural effusion on right: Possible aspiration as he lies on his side versus congestive heart failure. Unclear whether this is acute or chronic as he appears to be close to his baseline - we will request prior imaging from [place]. awaiting documentation. continue to diurese. (11) Dysphagia: Clear liquids per patient request. Speech consult. (12) Hyperthyroidism: TSH 0.009 however T4 close to normal. Continue methimazole 2.5 mg p.o. daily. Chronic per patient. (13) Superficial venous thrombosis of left upper extremity: Noted on US doppler. Main acute complaint is edema on right side therefore not contributing towards this. (14) DVT prophylaxis: Will avoid chemical DVT prophylaxis pending reason he is not on anticogulation from notes from [facility]. Poor skin integrity for SCDs. Admission and Anticipated Discharge Date Admission Date: November 13, 2020 Subjective Patient reports no new symptoms. Review of Systems Review of Systems: All systems reviewed & are unremarkable except as noted in HPI & below Physical Exam Physical Exam: Constitutional: + ill appearing (chronically) and + frail appearing;no acute distress and no altered mental status Eyes: + anicteric sclerae; normal pupil size ENMT: Mouth: + dry oral mucous membranes Neck: trachea midline Respiratory: Auscultation: + rhonchi (bilaterally, R > L); no wheezes Cardiovascular: Rate/Rhythm: + tachycardic and + irregularly irregular Heart Sounds: no murmur Vessels: no JVD Extremities: + edema (3+ bilateral lower extremities) Gastrointestinal (Abdomen): Inspection/Auscultation: abdomen normal to inspection (Feeding tube in place without surrounding cellulitis) and normal bowel sounds Percussion/Palpation: abdomen soft; abdomen nontender Skin: + mild erythema (and swelling just proximal to right elbow) Neurologic: moves all extremities and awake; no focal motor deficits (generalized weakness, bed bound) and not confused Psychiatric: Orientation: alert and oriented x 3 Results & Data Results & Data ([facility]) Vital Signs (Past 12 Hours) Vital Signs Temp Pulse Pulse Resp BP Pulse Ox 11/14/20 19:28 91 H 16 98 11/14/20 15:41 36.7 C 86 22 162/80 H 100 11/14/20 15:40 85 18 100 11/14/20 11:50 79 18 98 11/14/20 11:36 36.7 C 80 18 146/55 H 99 PG Care Time/CCT Total # of Minutes Spent Total Time Spent with Patient: Total time spent is greater than 50% in coordination of care (as documented) at patient's floor/unit and/or counseling patient: Coding Level of Care Code 82676 Subseq Hosp Care Lvl 3 Diagnoses Acute and chronic respiratory failure with hypoxia J96.21 Edema of both upper arms R60.0 Congestive heart failure I50.9 Aspiration pneumonia J69.0 Cellulitis L03.90 Atrial fibrillation I48.[address] Z93.0 Chronic indwelling Dash catheter Z97.8 Vomiting R11.2 Nausea presence: with nausea Vomiting Intractability: non-intractable Vomiting type: unspecified Pleural effusion on right J90 Dysphagia R13.10 Hyperthyroidism E05.90 Superficial venous thrombosis of left upper extremity I82.612 DVT prophylaxis Z29.9 Time Spent (min) 35 (1) Vomiting Nausea presence: with nausea Vomiting Intractability: non-intractable Vomiting type: unspecified Qualified Code(s): R11.2 - Nausea with vomiting, unspecified
[2020-11-15] MEDS ORDERED: KETOROLAC TROMETHAMINE 15 MG/ML VIAL IV ONE (00:27)
[2020-11-15] MEDS: AMPICILLIN/SULBACTAM SOD 3,000 MG in 0.9 % SODIUM CHLORIDE 100 ML IV SCH ×2 (02:11→08:47)
[2020-11-15] MEDS: ALBUT/IPRATROP 3MG/0.5MG NEB 3 ML VIAL INH SCH ×4 (07:12→19:20)
[2020-11-15] MEDS: FUROSEMIDE 40 MG in SYRINGE 0 ML IV SCH (08:40)
[2020-11-15] MEDS: guaiFENesin SUGAR FREE 200 MG/10 ML UDC PEG SCH ×3 (08:40→20:46)
[2020-11-15] MEDS: POTASSIUM CHLORIDE 20 MEQ/15 ML UDC GT SCH (08:40)
[2020-11-15] MEDS: ACETAMINOPHEN 500 MG TAB PO SCH ×3 (08:46→16:38)
[2020-11-15 09:20] LABS: Basophils # (auto) 0.02 K/uL (0-0.2); Basophils % (auto) 0.3 %; Eosinophils # (auto) 0.04 K/uL (0-0.5); Eosinophils % (auto) 0.7 %; Lymphocytes # (auto) 0.64 K/uL (1.2-3.4); Lymphocytes % (auto) 10.8 %; Mean Corpuscular Hemoglobin 31.1 pg (25-34); Mean Corpuscular Volume 100.3 fL (80-100); Mean Platelet Volume 10.3 fL (7.4-10.4); Monocytes # (auto) 0.52 K/uL (0.11-0.59); Monocytes % (auto) 8.8 %; Neutrophils % (auto) 79.4 %; Platelet Count 140 K/uL (130-400); RDW Coefficient of Variation 14.6 % (11.5-14.5); Red Blood Count 2.89 M/uL (4.7-6.1); White Blood Count 5.92 K/uL (4.8-10.8)
[2020-11-15 10:08] LABS: BUN Creatinine Ratio 37.7 (10-20); Calcium 9.3 mg/dl (8.5-10.1); Creatinine Clr Calc Pharmacy 45.1 ml/min; Est GFR (African American) 67.1; Est GFR (Non-African American) 57.9
[2020-11-15] MEDS: methIMAzole 5 MG TABLET PO SCH (10:22)
[2020-11-15] MEDS: LANSOPRAZOLE 30 MG SOLTAB NG SCH (10:23)
--- NOTE | 2020-11-15 11:45 | Pulmonology Progress Note ---
Date of Service November 15, 2020 Assessment & Plan (1) Pleural effusion on right: CT chest 11/14/2020 personally reviewed: Bilateral pleural effusion, more on the right side, right lower lobe collapse/atelectasis interlobular thickening, elevated right hemidiaphragm cardiomegaly Minimal mediastinal lymphadenopathy, Nonspecific --Vent dependent respiratory failure/trach dependent Multifactorial Etiology could be prolonged intubation on top of heart failure Patient also has right lower lobe collapse/atelectasis with prolonged stay in the hospital Continue with vent support for the time being Aggressive suctioning and chest PT would be recommended Try weaning of the vent as much as possible. COVID-19 PCR 11/13/2020 -ve, nasal MRSA positive PCT: 0.14 c/w atypical coverage for 5 days. Sputum Culture:- gram -ve bacilli. Ucx: Ecoli --Bilateral pleural effusion More on the right side NT BNP 4871 Etiology is most likely underlying CHF Would recommend continue with diuresis Patient is already on ventilator. If there is no improvement in the pleural effusion with diuresis will think about thoracentesis on the right side Protein calorie malnutrition with albumin of only 2.2 is also playing a role in the effusion as well as anasarca --Right upper extremity swelling Right upper extremity Doppler was ordered but it was a limited study Unsure if DVT has been ruled out --Right lower lobe atelectasis/collapse Aggressive suctioning, continue with mucolytic and expectorant. Would recommend keeping the patient on the left side -- Over all prognosis is guarded patient has good mentation but no quality of life Plan: In/Out: -748 Diuresis to keep the patient negative balance. c/w Diuresis. Abx changes to Cefepime for gram-negative bacilli in the sputum. Patient has chronic trach could be colonization but would treat it for the time being. f/u 2D echo. If there is no improvement in the pleural effusion after 48-72 hours of adequate diuresis will think about thoracentesis For the right lower lobe atelectasis/collapse, aggressive suctioning. Keep the patient on the left side. Need records from the patient's previous hospitalization to see what procedures were done for the right lower lobe collapse and the true reasoning behind the patient being trach dependent Please note the above document was generated using voice recognition software. It may contain grammatical, syntax or spelling errors.Any formal questions or concerns about the content, text or information contained within the body of this dictation should be directly addressed to the provider for clarification. (2) Tracheostomy dependence: (3) Ventilator dependent: Admission and Anticipated Discharge Date Admission Date: November 13, 2020 Subjective Patient seen and examined at bedside. Complaining of nausea. Did not throw up. Still complains of difficulty breathing. Denies any chest pain, no headache. Has been afebrile. On Vent. Review of Systems Review of Systems: All systems reviewed & are unremarkable except as noted in Subjective Physical Exam Physical Exam: Constitutional: No acute distress HEENT: EOMI, PERRLA, positive trach size 6 Respiratory system: Decreased air entry bilaterally, more decreased on the right side, positive crackles bilateral lower lobes, no wheeze, no rhonchi CVS: S1-S2 positive Abdomen: Soft, nontender, nondistended, positive bowel sounds x4 Extremities: +2 pulses bilaterally radialis/ dorsalis pedis, +2 pitting edema right upper extremity, +1 left upper extremity and bilateral lower extremity, chronic venous changes appreciated bilateral lower extremity, anasarca Neuro: Awake alert oriented to self and place and time Psych: Normal mood and affect G/U: Positive Dash Lymphatic: no cervical or axillary lymphadenopathy Results & Data Results & Data ([facility]) Vital Signs (Past 12 Hours) Vital Signs Temp Pulse Pulse Pulse Resp BP BP 11/15/20 08:00 11/15/20 07:45 36.7 C 110 H 18 119/56 L 11/15/20 07:23 95 H 18 11/15/20 07:13 95 H 18 11/15/20 04:14 36.7 C 78 16 111/73 11/15/20 01:49 37.5 C 75 16 99/62 L 11/15/20 00:30 96 H 19 11/15/20 00:29 37.4 C 103 H 25 H 96/42 L 11/15/20 00:00 98 H 20 11/14/20 23:45 102 H 18 Pulse Ox Pulse Ox 11/15/20 08:00 97 11/15/20 07:45 96 11/15/20 07:23 98 11/15/20 07:13 98 11/15/20 04:14 97 11/15/20 01:49 96 11/15/20 00:30 97 11/15/20 00:29 97 11/15/20 00:00 97 11/14/20 23:45 98 11/15/20 09:05 11/15/20 09:05 PG Care Time/CCT Total # of Minutes Spent Total Time Spent with Patient: Total time spent is greater than 50% in coordination of care (as documented) at patient's floor/unit and/or counseling patient: Coding Level of Care Code 90477 Subseq Hosp Care Lvl 3 Diagnoses Pleural effusion on right J90 Tracheostomy dependence Z93.0 Ventilator dependent Z99.11
--- NOTE | 2020-11-15 12:19 | XCELERA ---
[id number]
[2020-11-15] MEDS: DOXYCYCLINE HYCLATE 100 MG CAP PO SCH ×2 (13:09→20:36)
[2020-11-15] MEDS: CEFEPIME 2,000 MG in SYRINGE 0 ML IV SCH (13:10)
[2020-11-15] MEDS: SIMETHICONE 80 MG CHEW PO PRN ×2 (13:46→22:35)
[2020-11-15] MEDS: ONDANSETRON INJ 2 MG/ML 2 ML VIAL IV PRN ×2 (13:50→22:14)
--- NOTE | 2020-11-15 14:14 | Communication Note ---
Date of Service: November 15, 2020 Pulmonary addendum: Was called by the nurse the patient was having difficulty on his home with with breathing and he was tachycardic. When I saw him in the morning he was saturating 93% on the same vent settings. I requested the patient to be sent to MICU and be connected to the ventilator which we have from the hospital. Increase the PEEP as needed to bring up the saturation. Case was discussed with Dr. Azevedo Coding Level of Care Code None
[2020-11-15] MEDS: SERTRALINE HCL 100 MG TABLET PEG SCH (15:29)
[2020-11-15] MEDS ORDERED: ACETAMINOPHEN 1000 MG/100 ML IV IV ONE (20:22)
[2020-11-15] MEDS ORDERED: CEFEPIME 1,000 MG in SYRINGE 0 ML IV SCH (21:00)
[2020-11-15] MEDS ORDERED: ACETAMINOPHEN 1,000 MG/100 ML VIAL IV ONE (21:00)
[2020-11-15] MEDS: ALUMINUM/MAGNESIUM SUSP 30 ML UDC PO PRN (22:22)
--- NOTE | 2020-11-15 23:10 | Hospitalist Progress Note ---
Date of Service November 15, 2020 Assessment & Plan (1) Acute and chronic respiratory failure with hypoxia: Patient is admitted with acute on chronic respiratory failure with hypoxia Liley multifactorial but main culprit is from fluid overload and bilateral pleural effusions. Patient is requiring vent support through trach. May require thoracocenthesis. Patient is currently getting diuresis. Will maintain a negative balance. (2) Edema of both upper arms: This is the patient's main acute complaint. Suspect multifactorial with malnutrition, reduced movement, poor venous and lymphatic drainage. Do not suspect superior vena cava syndrome given lack of facial swelling. Will see if this improves as we decrease the edema. (3) Congestive heart failure: Possible mild acute exacerbation of this although family note prior diuresis causing MELANIE. will continue with lasix 40 mg daily. (4) Aspiration pneumonia: unsure of this. HOwever sputum shwoing gram negative bacilli. will place on cefepime (5) Cellulitis: Admtting doctor sspected this. However, does not appear to be cellulitis, likely venous stasis will monitor. (6) Atrial fibrillation: Chronic per patient recollection. Unclear why he is not on anticoagulation for this however. Not on rate or rhythm control. 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 Will consult pulmonology for assistance in management of this. (8) Chronic indwelling Dash catheter: No suprapubic pain to suggest UTI. Follow-up urine culture to see if it correlates with any blood culture although I do not suspect a catheter associated UTI on admission. (9) Vomiting: Monitor for recurrence. Patient reports no current nausea. Ondansetron 4 mg IV every 6 hourly as needed (10) Pleural effusion on right: Possible aspiration as he lies on his side versus congestive heart failure. Unclear whether this is acute or chronic as he appears to be close to his baseline - we will request prior imaging from [place]. Lasix 20 mg IV now, continue 40 mg via feeding tube daily. (11) Dysphagia: Clear liquids per patient request. Speech consult. (12) Hyperthyroidism: TSH 0.009 however T4 close to normal. Continue methimazole 2.5 mg p.o. daily. Chronic per patient. (13) Superficial venous thrombosis of left upper extremity: Noted on US doppler. Main acute complaint is edema on right side therefore not contributing towards this. (14) DVT prophylaxis: Will avoid chemical DVT prophylaxis pending reason he is not on anticogulation from notes from [facility]. Poor skin integrity for SCDs. Admission and Anticipated Discharge Date Admission Date: November 13, 2020 Subjective 80 yo m reports no significant improvement. Review of Systems Review of Systems: All systems reviewed & are unremarkable except as noted in HPI & below Physical Exam Physical Exam: Constitutional: + ill appearing (chronically) and + frail appearing;no acute distress and no altered mental status Eyes: + anicteric sclerae; normal pupil size ENMT: Mouth: + dry oral mucous membranes Neck: trachea midline Respiratory: Auscultation decreasedrhonchi (bilaterally, R > L); no wheezes Cardiovascular: Rate/Rhythm: + tachycardic and + irregularly irregular Heart Sounds: no murmur Vessels: no JVD Extremities: + edema (3+ bilateral lower extremities) Gastrointestinal (Abdomen): Inspection/Auscultation: abdomen normal to inspection (Feeding tube in place without surrounding cellulitis) and normal bowel sounds Percussion/Palpation: abdomen soft; abdomen nontender Skin: + mild erythema (and swelling just proximal to right elbow)/ swelling in lower extremities noted. Neurologic: moves all extremities and awake; no focal motor deficits (generalized weakness, bed bound) and not confused Psychiatric: Orientation: alert and oriented x 3 Results & Data Results & Data ([facility]) Vital Signs (Past 12 Hours) Vital Signs Temp Pulse Pulse Resp BP BP Pulse Ox 11/15/20 22:13 93 H 117/50 L 99 11/15/20 21:23 106 H 141/78 H 100 11/15/20 21:13 103 H 82/43 L 100 11/15/20 20:12 37.2 C 109 H 138/103 H 99 11/15/20 19:17 91 H 130/60 98 11/15/20 18:12 93 H 114/35 L 99 11/15/20 17:12 110 H 122/58 L 99 11/15/20 16:13 99 H 15 103/57 L 99 11/15/20 15:13 102 H 16 93/39 L 98 11/15/20 14:55 14 11/15/20 14:15 37.0 C 11/15/20 14:13 128 H 17 137/43 L 99 11/15/20 13:57 123 H 22 98 11/15/20 11:54 37.5 C 98 H 18 127/83 95 11/15/20 11:44 113 H 20 99 11/15/20 11:40 113 H 20 99 PG Care Time/CCT Total # of Minutes Spent Total Time Spent with Patient: Total time spent is greater than 50% in coordination of care (as documented) at patient's floor/unit and/or counseling patient: Coding Level of Care Code 33244 Subseq Hosp Care Lvl 3 Diagnoses Acute and chronic respiratory failure with hypoxia J96.21 Edema of both upper arms R60.0 Congestive heart failure I50.9 Aspiration pneumonia J69.0 Cellulitis L03.90 Atrial fibrillation I48.[address] Z93.0 Chronic indwelling Dash catheter Z97.8 Vomiting R11.2 Nausea presence: with nausea Vomiting Intractability: non-intractable Vomiting type: unspecified Pleural effusion on right J90 Dysphagia R13.10 Hyperthyroidism E05.90 Superficial venous thrombosis of left upper extremity I82.612 DVT prophylaxis Z29.9 Time Spent (min) 35 (1) Vomiting Nausea presence: with nausea Vomiting Intractability: non-intractable Vomiting type: unspecified Qualified Code(s): R11.2 - Nausea with vomiting, unspecified
--- NOTE | 2020-11-16 00:13 | Procedure Note ---
Procedure Note Date of Service Procedure: [facility] Indwelling Peripherally Inserted IV Catheter Placement Attending: Dr. Azevedo APC: Ji Iverson PA-C Indication: Need for IV Access, Poor Vascular Access Anesthesia: None Verbal consent was obtained from patient prior to performing the procedure. A time-out was completed verifying correct patient, procedure, site, positioning, and implant(s) or special equipment if applicable. Utilizing bedside ultrasound, vascularity of the LEFT upper extremity was assessed. Vessel size was noted for appropriate catheter selection and skin was marked with gentle pressure. Patients LEFT upper extremity was prepped and draped in the usual sterile fashion utilizing chlorhexidine. Ultrasound guidance was used to aid needle placement. A 20 g Endurance Catheter was introduced into the LEFT cephalic vein under direct ultrasound guidance. Guide wire was easily deployed without resistance. Catheter was threaded over the guide wire without resistance and the entire apparatus was removed intact. Good venous blood return was noted in the catheter. The IV catheter was easily flushed with sterile saline flush. Sterile clave was attached to the end of the catheter and good blood return was again noted. Tourniquet was released. StatLock device and sterile dressing were applied. The patient tolerated the procedure well. Blood Loss: Minimal Complications: None Procedural Ultrasound Guidance: Procedure Date: 11/16/2020 Indication: Poor Vascular Access Attending: Dr. Azevedo APC: Ji Iverson PA-C Artery/Veins Identified: YES Access confirmed in Vein with ultrasound: YES Complications: NONE Patient tolerated procedure: WELLNovember 16, 2020 Coding
[2020-11-16] MEDS ORDERED: HYDROmorphone INJ 0.5 MG/0.5 ML SYR IV STA (03:24)
[2020-11-16] MEDS: ALUMINUM/MAGNESIUM SUSP 30 ML UDC PO PRN (03:46)
[2020-11-16] MEDS ORDERED: traZODone HCL 50 MG TAB PO ONE (04:05)
[2020-11-16] MEDS: ONDANSETRON INJ 2 MG/ML 2 ML VIAL IV PRN ×4 (04:30→19:07)
[2020-11-16 05:07] LABS: Basophils # (auto) 0.03 K/uL (0-0.2); Basophils % (auto) 0.4 %; Eosinophils # (auto) 0.04 K/uL (0-0.5); Eosinophils % (auto) 0.5 %; Hematocrit (blood only) 29.1 % (42-52); Hemoglobin 9.1 g/dL (14.0-18.0); Immature Granulocytes # (auto) 0.01 K/uL (0.00-0.02); Immature Granulocytes % (auto) 0.1 %; Lymphocytes # (auto) 0.91 K/uL (1.2-3.4); Lymphocytes % (auto) 10.7 %; Mean Corpuscular Hgb Conc 31.3 g/dL (32-36); Mean Platelet Volume 11.3 fL (7.4-10.4); Monocytes # (auto) 0.73 K/uL (0.11-0.59); Monocytes % (auto) 8.5 %; Neutrophils # (auto) 6.82 K/uL (1.4-6.5); Neutrophils % (auto) 79.8 %; Platelet Count 149 K/uL (130-400); RDW Coefficient of Variation 14.6 % (11.5-14.5); Red Blood Count 2.94 M/uL (4.7-6.1); White Blood Count 8.54 K/uL (4.8-10.8)
[2020-11-16 05:24] LABS: BUN Creatinine Ratio 36.6 (10-20); Calcium 8.5 mg/dl (8.5-10.1); Creatinine Clr Calc Pharmacy 46.2 ml/min; Est GFR (African American) 69.3; Est GFR (Non-African American) 59.8; Magnesium 1.9 mg/dl (1.8-2.4); Phosphorus 2.5 mg/dl (2.5-4.9); Potassium 3.6 mmol/L (3.5-5.1)
[2020-11-16] MEDS: LANSOPRAZOLE 30 MG SOLTAB NG SCH (07:30)
[2020-11-16] MEDS: guaiFENesin SUGAR FREE 200 MG/10 ML UDC PEG SCH ×3 (07:30→19:06)
[2020-11-16] MEDS: DOXYCYCLINE HYCLATE 100 MG CAP PO SCH ×2 (07:30→19:07)
[2020-11-16] MEDS: methIMAzole 5 MG TABLET PO SCH (07:30)
[2020-11-16] MEDS: FUROSEMIDE 40 MG in SYRINGE 0 ML IV SCH (07:31)
--- NOTE | 2020-11-16 08:07 | XRay Report ---
XR chest 1V portable CLINICAL HISTORY: Respiratory failure COMPARISON STUDY: 11/13/2020 FINDINGS: Tracheostomy tube is again visualized. Remains in similar position. It may be partially wit hdrawn. Correlation with clinical examination advocated The heart is enlarged. There is a persistent right pleural effusion with right lung hazy opacity. There is slight coarsening of the markings at th e left medial lung base also unchanged.[ IMPRESSION: 1. Stable appearance of the tracheostomy tube 2. Persistent cardiomegaly 2. Persistent right pleural effusion 4. Persistent basilar airspace opacities ACT 112: Negative or not required by law. Electronically signed by: Lior Colmenares M.D. 11/16/2020 8:05 AM
[2020-11-16] MEDS: ALBUT/IPRATROP 3MG/0.5MG NEB 3 ML VIAL INH SCH ×4 (08:13→23:32)
[2020-11-16] MEDS: ACETAMINOPHEN 500 MG TAB PO SCH ×4 (09:49→19:06)
[2020-11-16] MEDS: CEFEPIME 2,000 MG in SYRINGE 0 ML IV SCH (12:42)
[2020-11-16] MEDS: SERTRALINE HCL 100 MG TABLET PEG SCH (12:55)
[2020-11-16] MEDS ORDERED: IBUPROFEN 200 MG TAB PO STA (13:24)
[2020-11-16] MEDS ORDERED: IBUPROFEN 200 MG/10 ML UDC GT ONE (14:00)
--- NOTE | 2020-11-16 14:08 | Pulmonology Progress Note ---
Date of Service November 16, 2020 Assessment & Plan (1) Pleural effusion on right: CT chest 11/14/2020 personally reviewed: Bilateral pleural effusion, more on the right side, right lower lobe collapse/atelectasis interlobular thickening, elevated right hemidiaphragm cardiomegaly Minimal mediastinal lymphadenopathy, Nonspecific --Vent dependent respiratory failure/trach dependent Multifactorial Etiology could be prolonged intubation on top of heart failure Patient also has right lower lobe collapse/atelectasis with prolonged stay in the hospital Continue with vent support for the time being Aggressive suctioning and chest PT would be recommended Try weaning of the vent as much as possible. COVID-19 PCR 11/13/2020 -ve, nasal MRSA positive PCT: 0.14 c/w atypical coverage for 5 days. Sputum Culture:- gram -ve bacilli. --Bilateral pleural effusion More on the right side NT BNP 4871 Etiology is most likely underlying CHF Would recommend continue with diuresis Patient is already on ventilator. If there is no improvement in the pleural effusion with diuresis will think about thoracentesis on the right side Protein calorie malnutrition with albumin of only 2.2 is also playing a role in the effusion as well as anasarca --Right upper extremity swelling Right upper extremity Doppler was ordered but it was a limited study Unsure if DVT has been ruled out --Right lower lobe atelectasis/collapse Aggressive suctioning, continue with mucolytic and expectorant. Would recommend keeping the patient on the left side -- Over all prognosis is guarded patient has good mentation but no quality of life Plan: In/Out: -957 Mucous plug was suctioned out yesterday. Diuresis to keep the patient negative balance. c/w Diuresis. There is no improvement in the pleural effusion in the next 24-48 hours will think about thoracentesis. Consent in the chart For the right lower lobe atelectasis/collapse, aggressive suctioning. Keep the patient on the left side. Need records from the patient's previous hospitalization to see what procedures were done for the right lower lobe collapse and the true reasoning behind the patient being trach dependent Please note the above document was generated using voice recognition software. It may contain grammatical, syntax or spelling errors.Any formal questions or concerns about the content, text or information contained within the body of this dictation should be directly addressed to the provider for clarification. (2) Tracheostomy dependence: (3) Ventilator dependent: Admission and Anticipated Discharge Date Admission Date: November 13, 2020 Subjective Patient seen and examined at bedside. No acute distress. Later last evening patient was having high PEEP and with the respirator distress. We were unable to detect the compliance the PEEP and the plateau on his home vent. Patient was transferred to ICU so that he can be managed there. At the time of examination patient states that he is feeling much better. Actually is asking to go home. No headache, no nausea or vomiting. Still complains of generalized body pain. Review of Systems Review of Systems: All systems reviewed & are unremarkable except as noted in Subjective Physical Exam Physical Exam: Constitutional: No acute distress HEENT: EOMI, PERRLA, positive trach size 6 Respiratory system: Decreased air entry bilaterally, more decreased on the right side, positive crackles bilateral lower lobes, no wheeze, no rhonchi CVS: S1-S2 positive Abdomen: Soft, nontender, nondistended, positive bowel sounds x4 Extremities: +2 pulses bilaterally radialis/ dorsalis pedis, +2 pitting edema right upper extremity, +1 left upper extremity and bilateral lower extremity, chronic venous changes appreciated bilateral lower extremity, anasarca Neuro: Awake alert oriented to self and place and time Psych: Normal mood and affect G/U: Positive Dash Lymphatic: no cervical or axillary lymphadenopathy Results & Data Results & Data ([facility]) Vital Signs (Past 12 Hours) Vital Signs Temp Pulse Pulse Resp BP BP Pulse Ox 11/16/20 12:13 93 H 133/36 L 98 11/16/20 11:13 94 H 112/61 97 11/16/20 10:55 90 21 100 11/16/20 10:19 99 H 91/40 L 95 11/16/20 10:13 99 H 79/56 L 96 11/16/20 09:13 101 H 103/19 L 98 11/16/20 08:54 96 H 11/16/20 08:22 37.1 C 95 H 15 100/64 100 11/16/20 08:13 88 16 97 11/16/20 06:13 82 121/44 L 100 11/16/20 05:13 90 107/49 L 98 11/16/20 04:13 95 H 115/72 97 11/16/20 04:00 37.0 C 11/16/20 03:38 103 H 28 H 97 11/16/20 03:15 104 H 110/43 L 97 11/16/20 02:13 98 H 116/37 L 98 11/16/20 02:06 37.0 C 11/16/20 04:08 11/16/20 04:08 PG Care Time/CCT Total # of Minutes Spent Total Time Spent with Patient: Total time spent is greater than 50% in coordination of care (as documented) at patient's floor/unit and/or counseling patient: Coding Level of Care Code 65333 Subseq Hosp Care Lvl 3 Diagnoses Pleural effusion on right J90 Tracheostomy dependence Z93.0 Ventilator dependent Z99.11
[2020-11-16] MEDS: ACETYLCYSTEINE 20% INHAL SOLN 4ML ***DISPENSED BY RESP. INH SCH ×2 (15:33→23:32)
[2020-11-16] MEDS: LIDOCAINE 5% 1 PATCH TD SCH (17:05)
[2020-11-16] MEDS ORDERED: MIDODRINE HCL 10 MG TAB PO STA (18:41)
[2020-11-16] MEDS ORDERED: ACETYLCYSTEINE 20% INHAL SOLN 4ML ***DISPENSED BY RESP. INH SCH (19:00)
[2020-11-16] MEDS: FAMOTIDINE 20 MG TAB PO SCH (19:06)
[2020-11-16] MEDS ORDERED: ACETAMINOPHEN 1,000 MG/100 ML VIAL IV ONE (21:00)
--- NOTE | 2020-11-16 21:51 | Hospitalist Progress Note ---
Date of Service November 16, 2020 Assessment & Plan (1) Acute and chronic respiratory failure with hypoxia: Patient is admitted with acute on chronic respiratory failure with hypoxia Liley multifactorial but main culprit is from fluid overload and bilateral pleural effusions. Patient is requiring vent support through trach. May require thoracocenthesis. Patient is currently getting diuresis. Will maintain a negative balance. Updated son on phone. (2) Hypotension: Patient became hypotensive today, consulted bog cutter, ordered midodrine 10 mg one time dose. May require pressors (3) Edema of both upper arms: This is the patient's main acute complaint. Suspect multifactorial with malnutrition, reduced movement, poor venous and lymphatic drainage. Do not suspect superior vena cava syndrome given lack of facial swelling. Will see if this improves as we decrease the edema. (4) Congestive heart failure: Possible mild acute exacerbation of this although family note prior diuresis causing MELANIE. will continue with lasix 40 mg daily. (5) Aspiration pneumonia: unsure of this. HOwever sputum shwoing gram negative bacilli. will place on cefepime (6) Cellulitis: Admtting doctor sspected this. However, does not appear to be cellulitis, likely venous stasis will monitor. (7) Atrial fibrillation: Chronic per patient recollection. Unclear why he is not on anticoagulation for this however. Not on rate or rhythm control. (8) Tracheostomy in place: Patient request change of this. Will consult pulmonology for assistance in management of this. (9) Chronic indwelling Dash catheter: No suprapubic pain to suggest UTI. Follow-up urine culture to see if it correlates with any blood culture although I do not suspect a catheter associated UTI on admission. (10) Vomiting: Monitor for recurrence. Patient reports no current nausea. Ondansetron 4 mg IV every 6 hourly as needed (11) Pleural effusion on right: Possible aspiration as he lies on his side versus congestive heart failure. Unclear whether this is acute or chronic as he appears to be close to his baseline - we will request prior imaging from [facility]. awaiting documentation. continue to diurese. (12) Dysphagia: Clear liquids per patient request. Speech consult. (13) Hyperthyroidism: TSH 0.009 however T4 close to normal. Continue methimazole 2.5 mg p.o. daily. Chronic per patient. (14) Superficial venous thrombosis of left upper extremity: Noted on US doppler. Main acute complaint is edema on right side therefore not contributing towards this. (15) DVT prophylaxis: Will avoid chemical DVT prophylaxis pending reason he is not on anticogulation from notes from [facility]. Poor skin integrity for SCDs. Admission and Anticipated Discharge Date Admission Date: November 13, 2020 Subjective Patient reports having pain in his right chest. Painful to palpation. Review of Systems Review of Systems: All systems reviewed & are unremarkable except as noted in HPI & below Physical Exam Physical Exam: Constitutional: + ill appearing (chronically) and + frail appearing;no acute distress and no altered mental status Eyes: + anicteric sclerae; normal pupil size ENMT: Mouth: + dry oral mucous membranes Neck: trachea midline Respiratory: Auscultation decreasedrhonchi (bilaterally, R > L); no wheezes Cardiovascular: Rate/Rhythm: + tachycardic and + irregularly irregular Heart Sounds: no murmur Vessels: no JVD Extremities: + edema (3+ bilateral lower extremities) Gastrointestinal (Abdomen): Inspection/Auscultation: abdomen normal to inspection (Feeding tube in place without surrounding cellulitis) and normal bowel sounds Percussion/Palpation: abdomen soft; abdomen nontender Skin: + mild erythema (and swelling just proximal to right elbow)/ swelling in lower extremities noted. tenderness to 3 intercostal space midclavicular line. Neurologic: moves all extremities and awake; no focal motor deficits (generalized weakness, bed bound) and not confused Psychiatric: Orientation: alert and oriented x 3 Results & Data Results & Data ([facility]) Vital Signs (Past 12 Hours) Vital Signs Temp Pulse Resp BP Pulse Ox 11/16/20 19:13 102 H 97/57 L 94 11/16/20 19:05 109 H 20 97 11/16/20 18:56 109 H 98/45 L 97 11/16/20 18:34 109 H 86/46 L 96 11/16/20 18:16 116 H 52/35 L 98 11/16/20 18:13 112 H 89/34 L 98 11/16/20 18:00 119 H 96 11/16/20 17:25 102 H 105/36 L 96 11/16/20 17:13 117 H 84/43 L 95 11/16/20 16:15 37.1 C 11/16/20 16:13 105 H 75/62 L 87 L 11/16/20 15:32 90 14 98 11/16/20 15:13 88 92/50 L 97 11/16/20 14:13 103 H 104/71 97 11/16/20 12:13 37.0 C 93 H 133/36 L 98 11/16/20 11:13 94 H 112/61 97 11/16/20 10:55 90 21 100 11/16/20 10:19 99 H 91/40 L 95 11/16/20 10:13 99 H 79/56 L 96 PG Care Time/CCT Total # of Minutes Spent Total Time Spent with Patient: Total time spent is greater than 50% in coordination of care (as documented) at patient's floor/unit and/or counseling patient: Coding Level of Care Code 45088 Subseq Hosp Care Lvl 3 Diagnoses Acute and chronic respiratory failure with hypoxia J96.21 Hypotension I95.9 Edema of both upper arms R60.0 Congestive heart failure I50.9 Aspiration pneumonia J69.0 Cellulitis L03.90 Atrial fibrillation I48.[address] Z93.0 Chronic indwelling Dash catheter Z97.8 Vomiting R11.2 Nausea presence: with nausea Vomiting Intractability: non-intractable Vomiting type: unspecified Pleural effusion on right J90 Dysphagia R13.10 Hyperthyroidism E05.90 Superficial venous thrombosis of left upper extremity I82.612 DVT prophylaxis Z29.9 Time Spent (min) 35 (1) Vomiting Nausea presence: with nausea Vomiting Intractability: non-intractable Vomiting type: unspecified Qualified Code(s): R11.2 - Nausea with vomiting, unspecified
[2020-11-17 05:19] LABS: Basophils # (auto) 0.02 K/uL (0-0.2); Basophils % (auto) 0.3 %; Eosinophils # (auto) 0.05 K/uL (0-0.5); Eosinophils % (auto) 0.7 %; Hematocrit (blood only) 26.2 % (42-52); Hemoglobin 8.3 g/dL (14.0-18.0); Immature Granulocytes # (auto) 0.01 K/uL (0.00-0.02); Immature Granulocytes % (auto) 0.1 %; Lymphocytes # (auto) 0.59 K/uL (1.2-3.4); Lymphocytes % (auto) 7.8 %; Mean Corpuscular Hemoglobin 31.2 pg (25-34); Mean Corpuscular Hgb Conc 31.7 g/dL (32-36); Mean Corpuscular Volume 98.5 fL (80-100); Mean Platelet Volume 11.5 fL (7.4-10.4); Monocytes % (auto) 7.9 %; Neutrophils # (auto) 6.34 K/uL (1.4-6.5); Neutrophils % (auto) 83.2 %; Platelet Count 133 K/uL (130-400); RDW Coefficient of Variation 14.9 % (11.5-14.5); RDW Standard Deviation 53.6 fL (36.4-46.3); Red Blood Count 2.66 M/uL (4.7-6.1); White Blood Count 7.61 K/uL (4.8-10.8)
[2020-11-17 05:46] LABS: BUN Creatinine Ratio 35.7 (10-20); Calcium 8.4 mg/dl (8.5-10.1); Creatinine Clr Calc Pharmacy 42.9 ml/min; Est GFR (African American) 63.2; Est GFR (Non-African American) 54.6; Magnesium 1.8 mg/dl (1.8-2.4); Phosphorus 2.4 mg/dl (2.5-4.9); Potassium 3.4 mmol/L (3.5-5.1)
[2020-11-17] MEDS: ALBUT/IPRATROP 3MG/0.5MG NEB 3 ML VIAL INH SCH ×3 (07:16→23:20)
[2020-11-17] MEDS: ACETYLCYSTEINE 20% INHAL SOLN 4ML ***DISPENSED BY RESP. INH SCH (07:17)
[2020-11-17] MEDS: LIDOCAINE 5% 1 PATCH TD SCH ×2 (07:54→19:11)
[2020-11-17] MEDS: guaiFENesin SUGAR FREE 200 MG/10 ML UDC PEG SCH ×3 (07:55→20:29)
[2020-11-17] MEDS: methIMAzole 5 MG TABLET PO SCH (07:55)
[2020-11-17] MEDS: LANSOPRAZOLE 30 MG SOLTAB NG SCH (07:55)
[2020-11-17] MEDS: FAMOTIDINE 20 MG TAB PO SCH ×2 (07:55→20:28)
[2020-11-17] MEDS: DOXYCYCLINE HYCLATE 100 MG CAP PO SCH (07:57)
[2020-11-17] MEDS: FUROSEMIDE 40 MG in SYRINGE 0 ML IV SCH (08:00)
[2020-11-17] MEDS: ACETAMINOPHEN 500 MG TAB PO SCH ×4 (08:00→20:31)
[2020-11-17] MEDS: ONDANSETRON INJ 2 MG/ML 2 ML VIAL IV PRN ×2 (08:00→14:27)
--- NOTE | 2020-11-17 08:10 | XRay Report ---
XR chest 1V portable CLINICAL HISTORY: Abnormal chest x-ray. Follow-up study COMPARISON STUDY: 11/16/2020 FINDINGS: The heart remains enlarged. The tracheostomy tube remains unchanged in position. There is p ersistent right pleural effusion with diffuse hazy opacity the right lung. There is persistent coarse divine of the markings the left medial lung base also unchanged.[ IMPRESSION: 1. Stable findings. Persistent cardiomegaly. Persistent right pleural effusion. Persistent basilar ai rspace opacities. ACT 112: Negative or not required by law. Electronically signed by: Lior Colmenares M.D. 11/17/2020 8:09 AM
--- NOTE | 2020-11-17 08:48 | Critical Care Progress Note ---
Date of Service November 17, 2020 Assessment & Plan (1) Ventilator dependent: Impression: 80-year-old male admitted to the hospital 11/13/2020 with. Patient has a recent admission from [facility] for septic shock secondary to infected hematoma of the thigh. During that hospitalization he was unable to be extubated and underwent percutaneous tracheostomy placement. He was initially managed on the floor but developed increasing work of breathing and shortness of breath and was transferred to the ICU for ventilatory management. 24-hour events: Patient continues to have issues with diffuse pain.. He has been maintained on assist control ventilation throughout the night. Recommendations: 1. Neurologic: The patient continues to have fairly diffuse pain issues. We will start Neurontin to see if this offers him some improvement from potential neuropathic pain. 2. Pulmonary: Persistent ventilatory failure: The patient uses the ventilator most of the time while he is at home. Attempted a trial of pressure support ventilation this morning however the patient states that he is more short of breath and feels more comfortable on an AC mode. He has a #6 cuffed tube in. Given the fact that he requires persistent positive airway pressure ventilation, I am reluctant to downsize his tube or change it to a potential fenestrated tube. We will continue trials to see if we can optimize his pulmonary status. LTAC may be a consideration but the patient wishes to pursue going home. Unclear if he has adequate support to make this a reliable goal. Given his difficulty weaning from the ventilator, I think sampling the effusion is reasonable. He will undergo thoracentesis under ultrasound guidance today. 3. Cardiovascular: History of heart failure but echocardiogram performed during this admission showed normal systolic function with LVH and mild dilatation of the right ventricle, left atrium, and right atrium. No significant aortic valvular disease with moderate mitral regurgitation. IVC was severely dilated. Tolerating diuresis currently and would continue to try afterload reduction to optimize his MR. He is not a surgical candidate and doubt he would be a ca ndidate for mitral clip. 4. Infectious disease: E. coli from urine and stenotrophomonas from the lung. Will transition to Levaquin which should be adequate to cover both pathogens. Other antibiotics will be discontinued. His white count is normal. No fevers. 5. GI: The patient is tolerating p.o. Continue nutritional supplementation. He is significantly deconditioned. Prealbumin 6. Endocrine: On methimizole. Continue to follow at this point time. 7. Heme-onc: Mild anemia. No evidence of acute blood loss. Continue to follow clinically. No indication for transfusion. 8. Renal: Hypokalemia, hypocalcemia, and hypophosphatemia. Electrolyte replacement protocols will be initiated. Patient will require physical therapy and occupational therapy if he wishes to improve. If not, palliative care may be an option. We will discuss with staffing if the patient can get his home ventilator. This may enable the patient to transition out of the intensive care unit and possibly to home. The patient is critically ill but it is unclear how much of this acute episode may be reversible. A total of 35 minutes critical care time was spent evaluating managing and stabilizing this patient. (2) Tracheostomy dependence: (3) Superficial venous thrombosis of left upper extremity: (4) Pleural effusion on right: (5) Acute and chronic respiratory failure with hypoxia: Admission and Anticipated Discharge Date Admission Date: November 13, 2020 Subjective Patient seen and examined. Discussed with critical care staff as well as pulmonary staff and ICU nurse at bedside as well as patient bedside. He continues to complain of fairly significant leg pain but when questioned further states his pain is all over everywhere and has been present for quite some time. He remains on the ventilator. He is hemodynamically stable but tachycardic this morning. His x-ray shows no significant change in the pleural effusion. Review of Systems Review of Systems: All systems reviewed & are unremarkable except as noted in HPI & below Physical Exam Constitutional: + cachectic; no acute distress ENMT: 6. Cuffed trach in place Neck: trachea midline, no thyromegaly Respiratory: normal respiratory effort, lungs clear to auscultation Cardiovascular: RRR, no murmur, no edema Gastrointestinal (Abdomen): normal bowel sounds, soft, nontender, no hepatosplenomegaly Musculoskeletal: Extremities: extremities normal to inspection Skin: no rashes, warm and dry Neurologic: Nonfocal exam Lymphatic: no cervical lymphadenopathy Results & Data Results & Data ([facility]) Vital Signs (Past 12 Hours) Vital Signs Temp Pulse Resp BP Pulse Ox 11/17/20 07:15 104 H 26 H 94 11/17/20 04:13 83 98/47 L 96 11/17/20 04:00 36.8 C 11/17/20 03:13 90 113/60 97 11/17/20 02:13 90 106/47 L 97 01/11/21 01:28 92 H 97/43 L 93 11/17/20 01:13 92 H 75/26 L 95 11/17/20 00:13 90 96/57 L 96 11/17/20 00:00 37.2 C 11/16/20 23:32 80 14 98 11/16/20 23:13 90 102/79 100 11/16/20 22:13 88 114/61 100 11/16/20 21:31 85 108/57 L 98 11/16/20 21:13 81 80/27 L 98 Laboratory Results 11/17/20 04:46 11/17/20 04:46 Sputum culture growing stenotrophomonas sensitive to ceftaz, Levaquin, and Bactrim Urine culture growing E. coli resistant to ampicillin Unasyn and Bactrim I/O: -797 Diagnostic Findings Chest x-ray was independently reviewed. Persistent haziness in the right hemithorax consistent with pleural effusion. Tracheostomy in good position. Coding Level of Care Code Critical Care 1st 30-74 mins Diagnoses Ventilator dependent Z99.11 Tracheostomy dependence Z93.0 Superficial venous thrombosis of left upper extremity I82.612 Pleural effusion on right J90 Acute and chronic respiratory failure with hypoxia J96.21
[2020-11-17] MEDS ORDERED: levoFLOXacin/D5W 500 MG/100 ML BAG IV SCH (09:00)
[2020-11-17] MEDS ORDERED: GABAPENTIN 100 MG CAP PO SCH (09:00)
[2020-11-17] MEDS: GABAPENTIN 250 MG/5 ML 470 ML BTL PO SCH ×3 (11:10→20:31)
--- NOTE | 2020-11-17 11:14 | Procedure Note ---
Procedure Note Date of Service November 17, 2020 Procedure: Diagnostic therapeutic ultrasound-guided catheter thoracentesis Eyeglass Lens Cutter: Dr. Norman Moreno Indication: Pleural effusion Consent: Signed by patient and verified with timeout prior to procedure Anesthesia: 8 mL's 1% lidocaine without epinephrine local. Procedure: Consent was verified and timeout performed. Appropriate imaging studies were reviewed prior to the procedure. Patient was placed in a seated position and limited thoracic ultrasound was performed of the right chest. See separate imaging. Site appropriate for thoracentesis was selected. The skin was prepped and draped in normal sterile fashion. Lidocaine was used for local analgesia. Fluid was aspirated via the finder needle. A small skin ricci was made with the scalpel and the catheter over the needle apparatus was advanced over the rib into the pleural space. Using the syringe one-way valve system, a total of 1500 mL's of yellow turbid fluid was removed. Procedure was terminated due to patient complaining of some pain. The catheter was removed and observed to be intact. A sterile dressing was applied. Post procedure chest x-ray was ordered. Fluid was sent for cytology, cell count differential, Gram stain and culture, LDH, pH, glucose, and total protein. The patient tolerated the procedure well without obvious complication Coding CPT Codes Pulmonary/Thoracic - Pulmonary and Thoracic: 46799 Thoracentesis w imaging ([id number]) [facility] Procedure Codes (Charges) Pulmonary/Thoracic Procedure 1: Pulmonary and Thoracic: 46273 Thoracentesis w imaging
[2020-11-17 11:45] LABS: Total Protein Pleural Fluid 3.5 g/dl
--- NOTE | 2020-11-17 11:56 | XRay Report ---
XR chest 1V portable HISTORY: 80 years-old Male S/P Thoracentesis follow-up study in a patient with right pleural effusio n status post thoracentesis COMPARISON: Chest radiograph 11/17/2020 at 6:39 AM TECHNIQUE: Portable AP view of the chest FINDINGS: Cardiac silhouette is enlarged. Tracheostomy cannula is again noted overlying the midline at the leve l the clavicular heads. Decreased size of the right pleural effusion status post thoracentesis. No po stprocedural pneumothorax identified. The study however is limited secondary to positioning with the medial right lung apex partially obscured by the patient's chin. Small right pleural effusion persist s. Improved aeration of the right lung base with mild persistent right lung base opacities. Pulmonary vascular congestion. IMPRESSION: 1. Decreased size of the right pleural effusion with improved aeration of the right lung base status post thoracentesis. 2. No pneumothorax identified. ACT 112: Negative or not required by law. The above report was generated using voice recognition software. It may contain grammatical, syntax o r spelling errors. Electronically signed by: Bar Richard M.D. 11/17/2020 11:55 AM
[2020-11-17 12:49] LABS: Appearance Pleural Fluid CLOUDY; Color Pleural Fluid YELLOW; RBC Pleural Fluid (A) < 3000 /uL; Source Pleural Fluid RIGHT LUNG; WBC Pleural Fluid (A) 721 /uL
[2020-11-17 13:06] LABS: Basophils, Fluid 0 %; Eosinophils, Fluid 0 %; Lymphocytes, Fluid 18 %; Mono,Macrophage,Mesothelial 57 %; Neutrophils, Fluid 25 %
[2020-11-17] MEDS: SERTRALINE HCL 100 MG TABLET PEG SCH (14:37)
[2020-11-17] MEDS: ICU ELECTROLYTE REPLACEMENT PROTOCOL SCH (19:12)
--- NOTE | 2020-11-17 22:44 | Hospitalist Progress Note ---
Date of Service November 17, 2020 Assessment & Plan (1) Acute and chronic respiratory failure with hypoxia: Patient is admitted with acute on chronic respiratory failure with hypoxia Liley multifactorial but main culprit is from fluid overload and bilateral pleural effusions. Patient is requiring vent support through trach. S/P thoracocenthesis on 11/17/20 Patient is currently getting diuresis. Will maintain a negative balance. Updated son on phone. (2) Hypotension: No longer hypotensive. He required one dose of midodrine on 11/16/20. will monitor. (3) Edema of both upper arms: This is the patient's main acute complaint. Suspect multifactorial with malnutrition, reduced movement, poor venous and lymphatic drainage. Do not suspect superior vena cava syndrome given lack of facial swelling. Will see if this improves as we decrease the edema. (4) Congestive heart failure: Acute on chronic diastolic CHF Possible mild acute exacerbation of this although family note prior diuresis causing MELANIE. will continue with lasix 40 mg daily. (5) Aspiration pneumonia: unsure of this. HOwever sputum shwoing gram negative bacilli. will place on cefepime (6) Cellulitis: Admtting doctor sspected this. However, does not appear to be cellulitis, likely venous stasis will monitor. (7) Atrial fibrillation: Chronic per patient recollection. Unclear why he is not on anticoagulation for this however. Not on rate or rhythm control. (8) Tracheostomy in place: Patient request change of this. Will consult pulmonology for assistance in management of this. (9) Chronic indwelling Hale catheter: No suprapubic pain to suggest UTI. Follow-up urine culture to see if it correlates with any blood culture although I do not suspect a catheter associated UTI on admission. (10) Vomiting: Monitor for recurrence. Patient reports no current nausea. Ondansetron 4 mg IV every 6 hourly as needed (11) Pleural effusion on right: Possible aspiration as he lies on his side versus congestive heart failure. Unclear whether this is acute or chronic as he appears to be close to his baseline - we will request prior imaging from [place]. awaiting documentation. continue to diurese. (12) Dysphagia: Clear liquids per patient request. Speech consult. (13) Hyperthyroidism: TSH 0.009 however T4 close to normal. Continue methimazole 2.5 mg p.o. daily. Chronic per patient. (14) Superficial venous thrombosis of left upper extremity: Noted on US doppler. Main acute complaint is edema on right side therefore not contributing towards this. (15) DVT prophylaxis: Will avoid chemical DVT prophylaxis pending reason he is not on anticogulation from notes from [facility]. Poor skin integrity for SCDs. (16) UTI (urinary tract infection): UTI due to chronic hale catheter will continue antibiotics, will need catheter replaced while in hospital. (17) Moderate malnutrition: pt with moderate malnutrition, evidenced by mild loss of body fat and muscle and moderate to severe fluid accumulation. continue bolus tube feeds when feasible, boost breeze with meals, monitor wts and labs Discharge dispo: Difficult as it appears family feels like it is difficlut to manage patient, while patient wants to return home. Case managemnet is involved in search for LTAC. Admission and Anticipated Discharge Date Admission Date: November 13, 2020 Subjective Patient reports doing better in regards to breathing after thoracocenthesis He continues to ghave generalized body aches and is asking for pain medicine. Review of Systems Review of Systems: All systems reviewed & are unremarkable except as noted in HPI & below Physical Exam Physical Exam: Constitutional: + ill appearing (chronically) and + frail appearing;no acute distress and no altered mental status Eyes: + anicteric sclerae; normal pupil size ENMT: Mouth: + dry oral mucous membranes Neck: trachea midline Respiratory: Auscultation decreasedrhonchi (bilaterally, R > L); no wheezes Cardiovascular: Rate/Rhythm: + tachycardic and + irregularly irregular Heart Sounds: no murmur Vessels: no JVD Extremities: + edema (3+ bilateral lower extremities) Gastrointestinal (Abdomen): Inspection/Auscultation: abdomen normal to inspection (Feeding tube in place without surrounding cellulitis) and normal bowel sounds Percussion/Palpation: abdomen soft; abdomen nontender Skin: + mild erythema (and swelling just proximal to right elbow)/ swelling in lower extremities noted. tenderness to 3 intercostal space midclavicular line. Neurologic: moves all extremities and awake; no focal motor deficits (generalized weakness, bed bound) and not confused Psychiatric: Orientation: alert and oriented x 3 Results & Data Results & Data ([facility]) Vital Signs (Past 12 Hours) Vital Signs Temp Pulse Resp BP Pulse Ox 11/17/20 21:14 93 H 113/55 L 96 11/17/20 20:14 36.8 C 97 H 128/94 100 11/17/20 19:45 100 H 21 99 11/17/20 19:13 99 H 140/83 98 11/17/20 17:00 105 H 98 11/17/20 16:13 113 H 114/68 99 11/17/20 16:00 37.2 C 102 H 24 98 11/17/20 15:13 97 H 122/59 L 99 11/17/20 15:00 96 H 99 11/17/20 14:32 99 H 24 117/68 99 11/17/20 14:13 98 H 117/68 99 11/17/20 14:00 101 H 98 11/17/20 13:13 95 H 24 116/73 98 11/17/20 13:00 82 11/17/20 12:13 100 H 115/62 98 11/17/20 12:00 37.1 C 112 H 100 11/17/20 11:13 96 H 106/57 L 98 11/17/20 11:08 106 H 22 92/54 L 96 11/17/20 11:06 95 H 17 98 11/17/20 11:00 98 H 96 PG Care Time/CCT Total # of Minutes Spent Total Time Spent with Patient: Total time spent is greater than 50% in coordination of care (as documented) at patient's floor/unit and/or counseling patient: Coding Level of Care Code 73610 Subseq Hosp Care Lvl 3 Diagnoses Acute and chronic respiratory failure with hypoxia J96.21 Hypotension I95.9 Edema of both upper arms R60.0 Congestive heart failure I50.9 Aspiration pneumonia J69.0 Cellulitis L03.90 Atrial fibrillation I48.[address] Z93.0 Chronic indwelling Hale catheter Z97.8 Vomiting R11.2 Nausea presence: with nausea Vomiting Intractability: non-intractable Vomiting type: unspecified Pleural effusion on right J90 Dysphagia R13.10 Hyperthyroidism E05.90 Superficial venous thrombosis of left upper extremity I82.612 DVT prophylaxis Z29.9 UTI (urinary tract infection) N39.0 Moderate malnutrition E44.0 (1) Vomiting Nausea presence: with nausea Vomiting Intractability: non-intractable Vomiting type: unspecified Qualified Code(s): R11.2 - Nausea with vomiting, unspecified
[2020-11-18 05:01] LABS: Basophils # (auto) 0.01 K/uL (0-0.2); Basophils % (auto) 0.1 %; Eosinophils # (auto) 0.04 K/uL (0-0.5); Eosinophils % (auto) 0.5 %; Hematocrit (blood only) 28.2 % (42-52); Hemoglobin 8.9 g/dL (14.0-18.0); Immature Granulocytes # (auto) 0.02 K/uL (0.00-0.02); Immature Granulocytes % (auto) 0.2 %; Lymphocytes # (auto) 0.86 K/uL (1.2-3.4); Lymphocytes % (auto) 10.2 %; Mean Corpuscular Hgb Conc 31.6 g/dL (32-36); Mean Corpuscular Volume 98.3 fL (80-100); Mean Platelet Volume 11.5 fL (7.4-10.4); Monocytes # (auto) 0.61 K/uL (0.11-0.59); Monocytes % (auto) 7.2 %; Neutrophils % (auto) 81.8 %; Platelet Count 134 K/uL (130-400); RDW Standard Deviation 53.3 fL (36.4-46.3); Red Blood Count 2.87 M/uL (4.7-6.1); White Blood Count 8.44 K/uL (4.8-10.8)
[2020-11-18 05:36] LABS: Calcium 8.5 mg/dl (8.5-10.1); Creatinine Clr Calc Pharmacy 40.9 ml/min; Est GFR (African American) 59.7; Est GFR (Non-African American) 51.5; Magnesium 1.8 mg/dl (1.8-2.4); Phosphorus 2.3 mg/dl (2.5-4.9); Potassium 2.8 mmol/L (3.5-5.1)
[2020-11-18] MEDS ORDERED: SODIUM PHOSPHATE 3 MMOL/1 ML INFUSION IV STA (05:55)
[2020-11-18] MEDS ORDERED: POTASSIUM PHOSPHATE 15 MMOL in SODIUM CHLORIDE 0.9% 250 ML IV ONE (06:15)
[2020-11-18] MEDS: POTASSIUM CHLORIDE / WTR 10 MEQ/100 ML PLCT IV SCH ×11 (06:31→19:52)
[2020-11-18] MEDS: MAGNESIUM SULFATE / D5W 1 GM/100 ML BAG IV SCH ×2 (06:32→07:42)
[2020-11-18] MEDS: ICU ELECTROLYTE REPLACEMENT PROTOCOL SCH ×2 (06:32→18:04)
--- NOTE | 2020-11-18 07:09 | XRay Report ---
XR chest 1V portable CLINICAL HISTORY: f/u COMPARISON STUDY: Chest radiograph November 17, 2020. FINDINGS: Tracheostomy tube is in place. There is no pneumothorax. Small right pleural effusion is si milar to prior exam. There is persistent right basilar opacity. Mild left basilar opacity is unchange d as well. Mild pulmonary edema persists. Cardiomegaly is again noted. IMPRESSION: 1. No significant change in appearance of the chest. Small right and trace left pleural effusions. Bi basilar opacities which may reflect atelectasis or consolidation. 2. Mild pulmonary edema. ACT 112: Negative or not required by law. Electronically signed by: Jeff Villatoro M.D. 11/18/2020 7:07 AM
[2020-11-18] MEDS: ALBUT/IPRATROP 3MG/0.5MG NEB 3 ML VIAL INH SCH ×3 (07:23→22:50)
--- NOTE | 2020-11-18 08:01 | Critical Care Progress Note ---
Date of Service November 18, 2020 Assessment & Plan (1) Ventilator dependent: Impression: 80-year-old male admitted to the hospital 11/13/2020 with. Patient has a recent admission from [facility] for septic shock secondary to infected hematoma of the thigh. During that hospitalization he was unable to be extubated and underwent percutaneous tracheostomy placement. He was initially managed on the floor but developed increasing work of breathing and shortness of breath and was transferred to the ICU for ventilatory management. 24-hour events: Pain control better with Neurontin but patient still has breakthrough pain. Transition to Levaquin for antimicrobial coverage. Thoracentesis with 1500 cc serous fluid removed. Transitioned back to his home vent and doing reasonably well. Nutritional consult initiated nocturnal feedings Recommendations: 1. Neurologic: The patient continues to have fairly diffuse pain issues. Continue Neurontin. Increase to every 6 hours dosing 2. Pulmonary: Persistent ventilatory failure: The patient uses the ventilator most of the time while he is at home. He has a #6 cuffed tube in. He is back on his home ventilator and appears to be tolerating the settings well. Given the fact that he requires persistent positive airway pressure ventilation, I am reluctant to downsize his tube or change it to a potential fenestrated tube. We will continue trials to see if we can optimize his pulmonary status. LTAC may be a consideration but the patient wishes to pursue going home. Unclear if he has adequate support to make this a reliable goal. Pleural effusion appears to be an exudate based on total protein. Await cytology. Continue diuretics. If this is a long-term issue, could consider Pleurx catheter placement although that would be a palliative measure and may result in significant protein losses contributing to the patient's malnutrition 3. Cardiovascular: History of heart failure but echocardiogram performed during this admission showed normal systolic function with LVH and mild dilatation of the right ventricle, left atrium, and right atrium. No significant aortic valvular disease with moderate mitral regurgitation. IVC was severely dilated. Tolerating diuresis currently and would continue to try afterload reduction to optimize his MR. He is not a surgical candidate and doubt he would be a candidate for mitral clip. 4. Infectious disease: E. coli from urine and stenotrophomonas from the lung. Continue levofloxacin. Will need 7 to 10-day course 5. GI: The patient is tolerating p.o. prealbumin is significantly decreased with decreased muscle mass. Discussed with nutritional services yesterday and initiated nocturnal feeding to try and improve caloric intake. 6. Endocrine: On methimizole. Continue to follow at this point time. 7. Heme-onc: Mild anemia. No evidence of acute blood loss. Continue to follow clinically. No indication for transfusion. 8. Renal: Hypokalemia, hypocalcemia, and hypophosphatemia. Electrolyte rep lacement protocols will be continued. Discussed with case management yesterday who is reaching out to the patient's son who are his primary caregivers. Unclear if the patient can go home or will need to return to a long-term acute care facility. Nevertheless he appears stable to downgrade from the intensive care unit as he is stable on his home ventilator. Can transition to PCU. We will continue to follow for pulmonary issues. Please call if we can be of assistance. (2) Tracheostomy dependence: (3) Superficial venous thrombosis of left upper extremity: (4) Acute and chronic respiratory failure with hypoxia: Admission and Anticipated Discharge Date Admission Date: November 13, 2020 Subjective Patient states that he feels better this morning. The Neurontin has been effective in improving his pain control but he feels that he needs something for breakthrough medication. He is been on his home vent settings. He definitely feels better after the thoracentesis. Review of Systems Review of Systems: All systems reviewed & are unremarkable except as noted in HPI & below Physical Exam Constitutional: + cachectic; no acute distress Neck: trachea midline, no thyromegaly Trach site clean dry and intact Respiratory: Coarse breath sounds bilaterally. Thoracentesis site appears normal with Band-Aids in place Cardiovascular: Rate/Rhythm: regular rate Heart Sounds: normal S1 and normal S2 Extremities: + edema Gastrointestinal (Abdomen): normal bowel sounds, soft, nontender, no hepatosplenomegaly Musculoskeletal: Extremities: extremities normal to inspection Skin: no rashes, warm and dry Lymphatic: no cervical lymphadenopathy Results & Data Results & Data ([facility]) Vital Signs (Past 12 Hours) Vital Signs Temp Pulse Pulse Resp BP Pulse Ox 11/18/20 07:25 94 H 17 96 11/18/20 06:17 100 H 101/68 92 11/18/20 04:14 37 C 89 94/39 L 98 11/18/20 03:14 87 100/30 L 98 11/18/20 02:13 88 123/50 L 100 11/18/20 00:14 37.1 C 111 H 101/50 L 100 11/17/20 23:20 96 H 96 H 18 98 11/17/20 23:14 93 H 93 11/17/20 23:13 94 H 131/73 98 11/17/20 22:13 93 H 126/69 98 11/17/20 21:14 93 H 113/55 L 96 11/17/20 20:14 36.8 C 97 H 128/94 100 I/O: -1067 Laboratory Results Cytology pending 11/18/20 04:21 11/18/20 04:21 Pleural fluid studies: Cell count: 25% neutrophils, 18% lymphocytes, 57% mono nuclear cells Pleural pH 7.5 Pleural total protein 3.5 Pleural LDH 106 Pleural glucose 102 Pleural fluid Gram stain and culture showed moderate mononuclear cells with moderate PMNs and no organisms Diagnostic Findings Chest x-ray today was independently reviewed stable position. There is a stable small right-sided pleural effusion Coding Level of Care Code 17708 Subseq Hosp Care [facility] 3 Diagnoses Ventilator dependent Z99.11 Tracheostomy dependence Z93.0 Superficial venous thrombosis of left upper extremity I82.612 Acute and chronic respiratory failure with hypoxia J96.21
[2020-11-18] MEDS: levoFLOXacin/D5W 250 MG/50 ML BAG IV SCH (08:32)
[2020-11-18] MEDS: GABAPENTIN 250 MG/5 ML 470 ML BTL PO SCH ×3 (08:34→16:31)
[2020-11-18] MEDS: LANSOPRAZOLE 30 MG SOLTAB NG SCH (08:35)
[2020-11-18] MEDS: FUROSEMIDE 40 MG in SYRINGE 0 ML IV SCH (08:35)
[2020-11-18] MEDS: FAMOTIDINE 20 MG TAB PO SCH ×2 (08:35→20:25)
[2020-11-18] MEDS: guaiFENesin SUGAR FREE 200 MG/10 ML UDC PEG SCH ×3 (08:36→20:26)
[2020-11-18] MEDS: methIMAzole 5 MG TABLET PO SCH (08:36)
[2020-11-18] MEDS: ACETAMINOPHEN 500 MG TAB PO SCH ×4 (08:38→20:28)
[2020-11-18] MEDS: LIDOCAINE 5% 1 PATCH TD SCH (08:44)
[2020-11-18] MEDS: POTASSIUM CHLORIDE PWD 20 MEQ PACK PO SCH ×4 (08:44→20:25)
[2020-11-18] MEDS: ONDANSETRON INJ 2 MG/ML 2 ML VIAL IV PRN (09:04)
[2020-11-18] MEDS: ENOXAPARIN INJ 30 MG/0.3 ML SYR SQ SCH (12:28)
[2020-11-18] MEDS: SERTRALINE HCL 100 MG TABLET PEG SCH (12:33)
--- NOTE | 2020-11-18 12:51 | Hospitalist Progress Note ---
Date of Service November 18, 2020 Assessment & Plan (1) Acute and chronic respiratory failure with hypoxia: Likely multifactorial but main culprit was bilateral pleural effusions. Patient is requiring vent support through trach, but as of 11/18, was at his baseline. - S/P thoracocentesis on 11/17/20. - Continue Lasix 40 mg IV daily -> Monitor I&Os, weights (2) Edema of both upper arms: This was the patient's main acute complaint. Suspect multifactorial with malnutrition, reduced movement, poor venous, and lymphatic drainage. - As above for Lasix (3) Dysphagia: Clear liquids per patient request. - Speech consulted, but their evaluation was not entirely complete on 11/14. No follow up after that. (4) Congestive heart failure: Acute on chronic diastolic CHF. - As above (5) Atrial fibrillation: Chronic per patient recollection. Unclear why he is not on anticoagulation for this. - Not on rate or rhythm control. (6) Tracheostomy in place: Chronic. Was in place at [facility] prior to admission. - Changed this admission (7) UTI (urinary tract infection): UTI due to chronic Dash catheter. - Continue levofloxacin (End date: 11/25/2019) - Will need catheter replaced while in hospital. (8) Chronic indwelling Dash catheter: No suprapubic pain to suggest UTI. - Usual care (9) Pleural effusion on right: S/p thoracentesis on 11/[address] Moreno. Light's criteria indicate exudative from total protein. Awaiting cytology. - Monitor with diuresis - Could be candidate for PleurX in a palliative setting (10) Hyperthyroidism: TSH was 0.009 on 11/13/2020; however, T4 was 1.61 (1.6 is normal). - Continue methimazole 2.5 mg p.o. daily. (11) Superficial venous thrombosis of left upper extremity: Doppler u/s on 11/13 showed partially occlusive superficial venous thrombus of the left cephalic vein. - Due to upper extremity and superficial thrombus, not treating with full anticoagulation. (12) Moderate malnutrition: Patient with moderate malnutrition, evidenced by mild loss of body fat and muscle and moderate to severe fluid accumulation. - Continue bolus tube feeds when feasible, boost breeze with meals, monitor wts and labs. (13) DVT prophylaxis: Lovenox 30 mg SQ daily Admission and Anticipated Discharge Date Admission Date: November 13, 2020 Subjective Feeling pretty well overall. He reports he is always in pain, but that the pain medication helps. Reports no fevers/chills, chest pain, shortness of breath, abdominal pain, nausea, or vomiting. Physical Exam Constitutional: WD/WN, vitals as above + cachectic and + physical limitations Eyes: EOM intact bilaterally; no conjunctival abnormality ENMT: external ear and nose normal, oropharynx normal Neck: trachea midline, no thyromegaly + tracheostomy present; + abnormal visual inspection Respiratory: no respiratory distress Auscultation: + crackles and + rales Cardiovascular: RRR, no murmur, no edema Gastrointestinal (Abdomen): Inspection/Auscultation: abdomen normal to inspection; abdomen not distended Musculoskeletal: Head/Neck/Chest: normocephalic and head atraumatic Extremities: extremities normal to inspection (Arms swollen) Skin: no rashes, warm and dry + ecchymosis Neurologic: moves all extremities and awake Psychiatric: Orientation: alert, oriented to person and cooperative Results & Data Results & Data ([facility]) Vital Signs (Past 12 Hours) Vital Signs Temp Pulse Resp BP Pulse Ox 11/18/20 07:25 94 H 17 96 11/18/20 06:17 100 H 101/68 92 11/18/20 04:14 37 C 89 94/39 L 98 11/18/20 03:14 87 100/30 L 98 11/18/20 02:13 88 123/50 L 100 PG Care Time/CCT Total # of Minutes Spent Total Time Spent with Patient: Total time spent is greater than 50% in coordination of care (as documented) at patient's floor/unit and/or counseling patient: Coding Level of Care Code 73114 Subseq Hosp Care Lvl 3 Diagnoses Acute and chronic respiratory failure with hypoxia J96.21 Edema of both upper arms R60.0 Dysphagia R13.10 Congestive heart failure I50.9 Atrial fibrillation I48.[address] Z93.0 UTI (urinary tract infection) N39.0 Chronic indwelling Dash catheter Z97.8 Pleural effusion on right J90 Hyperthyroidism E05.90 Superficial venous thrombosis of left upper extremity I82.612 Moderate malnutrition E44.0 DVT prophylaxis Z29.9
[2020-11-18] MEDS: PEPTAMEN 1.5 CAL 1,000 ML BAG PEG SCH (20:28)
[2020-11-19] MEDS: GABAPENTIN 250 MG/5 ML 470 ML BTL PO SCH ×5 (00:35→23:21)
[2020-11-19 05:02] LABS: Hematocrit (blood only) 27.6 % (42-52); Hemoglobin 9.2 g/dL (14.0-18.0); Mean Corpuscular Hgb Conc 33.3 g/dL (32-36); Mean Corpuscular Volume 98.9 fL (80-100); Mean Platelet Volume 11.6 fL (7.4-10.4); Platelet Count 130 K/uL (130-400); RDW Coefficient of Variation 15.2 % (11.5-14.5); RDW Standard Deviation 54.7 fL (36.4-46.3); Red Blood Count 2.79 M/uL (4.7-6.1); White Blood Count 7.55 K/uL (4.8-10.8)
[2020-11-19 05:39] LABS: Albumin Globulin Ratio 0.5 (0.9-2); Albumin Level 2.1 gm/dl (3.4-5.0); BUN Creatinine Ratio 30.3 (10-20); Bilirubin,Total 0.5 mg/dl (0.2-1); Calcium 8.5 mg/dl (8.5-10.1); Creatinine Clr Calc Pharmacy 40.9 ml/min; Est GFR (African American) 59.7; Est GFR (Non-African American) 51.5; Globulin 4.5 gm/dl (2.5-4.0); Magnesium 2.2 mg/dl (1.8-2.4); Potassium 4.6 mmol/L (3.5-5.1); Total Protein 6.6 gm/dl (6.4-8.2)
[2020-11-19] MEDS: ALBUT/IPRATROP 3MG/0.5MG NEB 3 ML VIAL INH SCH ×3 (07:43→23:51)
[2020-11-19] MEDS: FUROSEMIDE 40 MG in SYRINGE 0 ML IV SCH (10:31)
[2020-11-19] MEDS: levoFLOXacin/D5W 250 MG/50 ML BAG IV SCH (10:31)
[2020-11-19] MEDS: LIDOCAINE 5% 1 PATCH TD SCH (10:32)
[2020-11-19] MEDS: guaiFENesin SUGAR FREE 200 MG/10 ML UDC PEG SCH ×3 (10:32→20:59)
[2020-11-19] MEDS: LANSOPRAZOLE 30 MG SOLTAB NG SCH (10:33)
[2020-11-19] MEDS: methIMAzole 5 MG TABLET PO SCH (10:33)
[2020-11-19] MEDS: FAMOTIDINE 20 MG TAB PO SCH ×2 (10:34→20:59)
[2020-11-19] MEDS: POTASSIUM CHLORIDE PWD 20 MEQ PACK PO SCH (10:34)
[2020-11-19] MEDS: ENOXAPARIN INJ 30 MG/0.3 ML SYR SQ SCH (10:35)
[2020-11-19] MEDS: ACETAMINOPHEN 500 MG TAB PO SCH ×4 (10:36→20:59)
--- NOTE | 2020-11-19 14:35 | Pulmonology Progress Note ---
Date of Service November 19, 2020 Assessment & Plan (1) Ventilator dependent: Impression: This is an 80-year-old male with a complicated past medical history. He apparently was admitted to [facility] 4 months ago and developed respiratory failure from flash pulmonary edema. He was intubated and was unable to be successfully extubated so tracheostomy tube was placed. After he was medically stable, patient was transferred to [facility] in [facility]. He then underwent treatment at a long-term acute care facility. Patient was discharged home and developed further respiratory failure and was admitted to [facility] on 11/13/2020. He is currently oxygenating well with his home vent and a #6 Shiley cuffed tracheostomy tube. Recommendations: 1. Ventilator dependent respiratory failure: Patient has a home ventilator that is used through the tracheostomy. Apparently the tracheostomy tube is now been changed to downsize since placement 3 to 4 months ago. Records have been requested from [place] as well as [facility] and are pending. The unitizer of the ICU called down to [employer] information services and they have assured us that they will follow through and get records for review. At this time patient is ventilating well with the cuff completely deflated. The difficulty is chronic alarming of the ventilator. The [employer] company has been contacted and we are waiting them to come in and adjust alarm settings. For now, we will keep the cuff partially inflated at 6 mL in order to limit alarming. There is still a significant cuff leak to the point the patient can talk without difficulty. Continue with home ventilator. Patient desires to be discharged home on hospice. Palliative care will be contacted. We will have discussion with family regarding CODE STATUS after palliative care has had a chance to talk with the patient. For now, continue patient is a full resuscitation. 2. Tracheostomy placement: A Shiley #[address] This apparently has not been changed or modified since placement. At this time there is question of tracheomalacia or erosiveness secondary to long-term use of the cough. We will ask ENT to evaluate and assist with management of the tracheostomy tube regarding downsizing and modification. 3. Dysphagia/aspiration: Patient underwent video swallow study today with the cuff completely deflated on his tracheostomy tube. He was able to manage thin liquids without any evidence of aspiration. There was full discussion about possibility of aspiration, sequela of pneumonia, possibility of . Patient states that he fully understands risk versus benefit of eating and desires to continue to eat. Would recommend that the when this occur the cuff be deflated for oral consumption. Refer to #2 above regarding tracheostomy management by ENT. 4. Pleural effusion: Patient underwent ultrasound-guided thoracentesis with Dr. Moreno 11/17/2020. Fluid appeared to be exudative. Cytology is still pending. Continue to monitor. If fluid continues to reaccumulate, patient may benefit from palliative Pleurx catheter placement. 5. Infectious disease: Patient does have positive E. coli in the urine as well as stenotrophomonas from the lung. He is currently on levofloxacin. We will continue this for a total of 10 days. 6. MRSA: Patient with positive MRSA screening on 11/13/2020. No growth on blood cultures x2. This is probably colonization from previous inpatient status over the last 4 months. Continue isolation precautions. 7. Malnutrition: Patient with decreased muscle mass as well as low BMI and atrophied state. Inpatient status for the last 4 months per report. This point patient does have a PEG tube and has been started on trickle feeds of 20 mL an hour for 12 hours daily. Albumin and prealbumin are significantly decreased. Nutrition is involved. Video swallow study today with no aspiration. Will discuss food choices with nutrition. Patient requests oral diet. He is aware of risk of aspiration with sequela of pneumonia, hospitalization, or . Patient fully understands this and wishes to eat by mouth. Will advance diet per dietitian recommendation. Thank you for including us in the care of this patient. We will continue to follow along with you for now. (2) Tracheostomy dependence: (3) Pleural effusion on right: (4) Acute and chronic respiratory failure with hypoxia: (5) Tracheostomy in place: (6) Atrial fibrillation: (7) Chronic indwelling Dash catheter: (8) Dysphagia: (9) Hyperthyroidism: (10) Congestive heart failure: Admission and Anticipated Discharge Date Admission Date: November 13, 2020 Supervising Physician Co-Signing Physician Notes seen and agree. Discussed with TATI and case management. Subjective Attending: Dr. Moreno This is an 80-year-old male with chronic respiratory failure that is ventilator dependent. He received his tracheostomy at [facility] during a prolonged hospitalization approximately 4 months ago. Records were requested 11/13/2020 from [facility]. However, I do not see them scanned into the system. We will contact health information services to see if we do have a copy. Patient does have a #6 Shiley tracheostomy tube with a cough. He is talking around the cuff so it is not sealed against the trachea. He underwent video swallow study today and had no aspiration with thin liquids. He has no cough with ingestion of food. I did have a long discussion with him regarding the risk of aspiration, pneumonia, . He states understanding and request to eat. He further requests no further video swallow studies as he reports that he has had this done several times. We did inflate the cuff until there was no leak and patient tolerated well. We then deflated the cuff completely and patient continued to oxygenate well at 97% with vent settings of rate of 14, tidal volume of 380, PEEP of 5, FiO2 of 30% (2 L/min bleed in of supplemental O2). The video swallow study was done with the cuff completely deflated. With the cuff deflated patient's vent does alarm frequently. We have made multiple attempts to contact the [employer] that provided the ventilator with no return calls. We will attempt to continue to call the [employer]. At this time, the patient denies any fever, chills, sweats, rigors. He does report minimal nausea with no vomiting. He complains of generalized myalgias as well as arthralgias with any pressure on any limb and with any movement whatsoever. He also complains of irritation of the throat with movement of the tracheostomy tube. He is apologetic to the nursing team for any inconvenience that he has provided. He was assured that there is no inconvenience as our honor to treat him. He has no other acute complaints at this time Review of Systems Review of Systems: All systems reviewed & are unremarkable except as noted in Subjective Physical Exam Physical Exam: GENERAL : No acute distress EYES: No icterus, gaze conjugate NOSE: No evidence of epistaxis MOUTH: No lesions or candidiasis NECK: Supple LUNGS: Bibasilar crackles. Difficult to auscultate inasmuch as patient has positional difficulty secondary to pain. No bronchospasm or rhonchi appreciated. HEART: Regular, rate controlled ABDOMEN: Soft, NT, ND, BS Present EXTREMITIES: No LE edema, pedal pulses intact MUSCULOSKELETAL: Patient has generalized myalgias and arthralgias. He does not tolerate any pressure on any extremity. He is extremely sensitive to any palpation. NEURO: A&OX3 Results & Data Results & Data ([facility]) Vital Signs (Past 12 Hours) Vital Signs Temp Pulse Pulse Resp BP Pulse Ox 11/19/20 11:32 36.5 C 96 H 18 106/66 98 11/19/20 08:00 95 H 17 99 11/19/20 03:45 37.2 C 99 H 24 105/83 97 Laboratory Results 11/19/20 04:32 11/19/20 04:32 Diagnostic Findings Video swallow study done today 11/19/2020. Please refer to RATING CLERK note. No aspiration with thin liquids with cough completely deflated. PG Care Time/CCT Total # of Minutes Spent Total Time Spent with Patient: Total time spent is greater than 50% in coordination of care (as documented) at patient's floor/unit and/or counseling patient: 60 minutes including monitoring during video swallow with cuff deflated on tracheostomy tube. Coding Level of Care Code 69443 Subseq Hosp Care Lvl 3 Diagnoses Ventilator dependent Z99.11 Tracheostomy dependence Z93.0 Pleural effusion on right J90 Acute and chronic respiratory failure with hypoxia J96.[address] Z93.0 Atrial fibrillation I48.91 Chronic indwelling Dash catheter Z97.8 Dysphagia R13.10 Hyperthyroidism E05.90 Congestive heart failure I50.9 Time Spent (min) 60
--- NOTE | 2020-11-19 15:01 | Fluoroscopy Report ---
FL video swallow HISTORY: Possible pneumonia. r/o aspiration TECHNIQUE: Video fluoroscopic evaluation of swallowing was performed in the AP and lateral projection s by the speech pathology staff. The patient is fed thick liquid barium only. FLUOROSCOPY TIME: 1.4 minutes. A cine loop submitted. COMPARISON STUDY: None. FINDINGS: Tracheostomy tube is noted. This likely accounts for the moderate narrowing at the proximal esophagus. There is normal epiglottic deflection and hyoid excursion. There is an episode of penetra tion. No aspiration identified. IMPRESSION: 1. No aspiration identified. Tracheostomy tube likely accounts for the moderate narrowing at the prox imal esophagus. 2. Please see the speech pathologist report for detailed findings and recommendations. ACT 112: Negative or not required by law. Electronically signed by: Joni Brewster M.D. 11/19/2020 3:00 PM
--- NOTE | 2020-11-19 16:37 | Hospitalist Progress Note ---
Date of Service November 19, 2020 Assessment & Plan (1) Acute and chronic respiratory failure with hypoxia: Likely multifactorial but main culprit was bilateral pleural effusions. Patient is requiring vent support through trach, but as of 11/18, was at his baseline. - S/P thoracocentesis on 11/17/20. - Continue Lasix 40 mg IV daily -> Monitor I&Os, weights. Stable breathing today. 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 Was in place at [facility] prior to admission. - Reaching out to ENT regarding trach. He currently has a 6-0 cuffed Shiley which pulm feels is likely his original trach and is ~3 months old. They do not feel comfortable changing it. (3) Edema of both upper arms: This was the patient's main acute complaint. Suspect multifactorial with malnutrition, reduced movement, poor venous, and lymphatic drainage. - As above for Lasix (4) Dysphagia: Clear liquids per patient request. - Speech consulted. - Video swallow on 11/19 showed no aspiration. Can go with full liquids or pured diet per speech. (5) Congestive heart failure: Acute on chronic diastolic CHF. - As above (6) Atrial fibrillation: Chronic per patient recollection. Unclear why he is not on anticoagulation for this. - Not on rate or rhythm control. (7) UTI (urinary tract infection): UTI due to chronic Dash catheter. - Continue levofloxacin (End date: 11/25/2019) - Will need catheter replaced while in hospital. (8) Chronic indwelling Dash catheter: No suprapubic pain to suggest UTI. - Usual care (9) Pleural effusion on right: S/p thoracentesis on 11/[address] Moreno. Light's criteria indicate exudative from total protein. Awaiting cytology. - Monitor with diuresis - Could be candidate for PleurX in a palliative setting (10) Hyperthyroidism: TSH was 0.009 on 11/13/2020; however, T4 was 1.61 (1.6 is normal). - Continue methimazole 2.5 mg p.o. daily. (11) Superficial venous thrombosis of left upper extremity: Doppler u/s on 11/13 showed partially occlusive superficial venous thrombus of the left cephalic vein. - Due to upper extremity and superficial thrombus, not treating with full anticoagulation. (12) Moderate malnutrition: Patient with moderate malnutrition, evidenced by mild loss of body fat and muscle and moderate to severe fluid accumulation. - Continue bolus tube feeds when feasible, boost breeze with meals, monitor wts and labs. (13) DVT prophylaxis: Lovenox 30 mg SQ daily Admission and Anticipated Discharge Date Admission Date: November 13, 2020 Subjective Lots of pain today. Reports no fevers/chills, chest pain, shortness of breath, abdominal pain, nausea, or vomiting. Physical Exam Constitutional: WD/WN, vitals as above + cachectic and + physical limitations Eyes: EOM intact bilaterally; no conjunctival abnormality ENMT: external ear and nose normal, oropharynx normal Neck: trachea midline, no thyromegaly + tracheostomy present; + abnormal visual inspection Respiratory: no respiratory distress Auscultation: + crackles and + rales Cardiovascular: RRR, no murmur, no edema Gastrointestinal (Abdomen): Inspection/Auscultation: abdomen normal to inspection; abdomen not distended Musculoskeletal: Head/Neck/Chest: normocephalic and head atraumatic Extremities: extremities normal to inspection (Arms swollen) Skin: no rashes, warm and dry + ecchymosis Neurologic: moves all extremities and awake Psychiatric: Orientation: alert, oriented to person and cooperative Results & Data Results & Data ([facility]) Vital Signs (Past 12 Hours) Vital Signs Temp Pulse Pulse Resp BP Pulse Ox 11/19/20 15:07 89 24 99 11/19/20 11:32 36.5 C 96 H 18 106/66 98 11/19/20 08:00 95 H 17 99 PG Care Time/CCT Total # of Minutes Spent Total Time Spent with Patient: Total time spent is greater than 50% in coordination of care (as documented) at patient's floor/unit and/or counseling patient: Coding Level of Care Code 52282 Subseq Hosp Care Lvl 2 Diagnoses Acute and chronic respiratory failure with hypoxia J96.[address] Z93.0 Edema of both upper arms R60.0 Dysphagia R13.10 Congestive heart failure I50.9 Atrial fibrillation I48.91 UTI (urinary tract infection) N39.0 Chronic indwelling Dash catheter Z97.8 Pleural effusion on right J90 Hyperthyroidism E05.90 Superficial venous thrombosis of left upper extremity I82.612 Moderate malnutrition E44.0 DVT prophylaxis Z29.9
[2020-11-19] MEDS: SERTRALINE HCL 100 MG TABLET PEG SCH (17:27)
[2020-11-20] MEDS ORDERED: HYDROmorphone INJ 0.5 MG/0.5 ML SYR IV STA (02:39)
[2020-11-20] MEDS: GABAPENTIN 250 MG/5 ML 470 ML BTL PO SCH ×4 (05:17→21:24)
[2020-11-20 05:43] LABS: Hemoglobin 8.7 g/dL (14.0-18.0); Mean Corpuscular Hemoglobin 31.3 pg (25-34); Mean Corpuscular Hgb Conc 31.1 g/dL (32-36); Mean Corpuscular Volume 100.7 fL (80-100); Mean Platelet Volume 11.1 fL (7.4-10.4); Platelet Count 138 K/uL (130-400); RDW Coefficient of Variation 15.1 % (11.5-14.5); RDW Standard Deviation 55.4 fL (36.4-46.3); Red Blood Count 2.78 M/uL (4.7-6.1); White Blood Count 7.11 K/uL (4.8-10.8)
[2020-11-20 06:25] LABS: BUN Creatinine Ratio 28.5 (10-20); Calcium 8.6 mg/dl (8.5-10.1); Creatinine Clr Calc Pharmacy 45.8 ml/min; Est GFR (African American) 68.6; Est GFR (Non-African American) 59.1; Magnesium 2.2 mg/dl (1.8-2.4); Potassium 3.7 mmol/L (3.5-5.1)
[2020-11-20] MEDS: ALBUT/IPRATROP 3MG/0.5MG NEB 3 ML VIAL INH SCH ×3 (07:50→22:11)
[2020-11-20] MEDS: guaiFENesin SUGAR FREE 200 MG/10 ML UDC PEG SCH ×3 (08:16→21:24)
[2020-11-20] MEDS: LIDOCAINE 5% 1 PATCH TD SCH (08:16)
[2020-11-20] MEDS: LANSOPRAZOLE 30 MG SOLTAB NG SCH (08:16)
[2020-11-20] MEDS: FAMOTIDINE 20 MG TAB PO SCH ×2 (08:16→21:25)
[2020-11-20] MEDS: methIMAzole 5 MG TABLET PO SCH (08:16)
[2020-11-20] MEDS: ENOXAPARIN INJ 30 MG/0.3 ML SYR SQ SCH (08:17)
[2020-11-20] MEDS: ACETAMINOPHEN 500 MG TAB PO SCH ×4 (08:20→21:25)
[2020-11-20] MEDS ORDERED: ALBUTEROL 0.5% NEB SOLN 2.5 MG/0.5 ML VIAL ONE (08:48)
[2020-11-20] MEDS ORDERED: ALBUTEROL 0.083% NEBU SOLN 3 ML VIAL ONE (08:48)
[2020-11-20] MEDS: FUROSEMIDE 40 MG in SYRINGE 0 ML IV SCH (08:59)
--- NOTE | 2020-11-20 09:15 | XRay Report ---
XR chest 1V portable CLINICAL HISTORY: hypoxemia COMPARISON STUDY: 11/18/2020 FINDINGS: The heart is enlarged. There is a right pleural effusion with associated right basilar atel ectasis/consolidation. Since the prior study, the patient developed airspace opacities within the lef t lung zone laterally. There is an indwelling tracheostomy tube.[A gastrostomy tube is visualized. IMPRESSION: 1. Cardiomegaly and suspected pulmonary vascular congestion 2. Right pleural effusion with associated right lower lobe atelectasis/consolidation 3. Interval development of left lung airspace opacities, asymmetric pulmonary edema versus infectious /inflammatory ACT 112: Negative or not required by law. Electronically signed by: Lior Colmenares M.D. 11/20/2020 9:14 AM
[2020-11-20] MEDS: levoFLOXacin/D5W 250 MG/50 ML BAG IV SCH (09:34)
--- NOTE | 2020-11-20 12:37 | Pulmonology Progress Note ---
Date of Service November 20, 2020 Assessment & Plan (1) Ventilator dependent: Impression: This is an 80-year-old male with a complicated past medical history. He apparently was admitted to [facility] 4 months ago and developed respiratory failure from flash pulmonary edema. He was intubated and was unable to be successfully extubated so tracheostomy tube was placed. After he was medically stable, patient was transferred to [facility] in [facility]. He then underwent treatment at a long-term acute care facility. Patient was discharged home and developed further respiratory failure and was admitted to [facility] on 11/13/2020. He is currently on his home vent and a #6 Shiley cuffed tracheostomy tube. He did have an episode this morning of hypoxemia which resolved with suctioning and bronchodilators. Unclear if this represents recurrent aspiration event although a swallow study was negative. Recommendations: 1. Ventilator dependent respiratory failure: Patient has a home ventilator that is used through the tracheostomy. His he continues to require ventilatory support and has done so since the tracheostomy was placed, I am reluctant to downsize the trach. His cuff is certainly not sealing as he is able to speak around the cuff. Records have been requested from [place] as well as [facility] and are pending. The difficulty is chronic alarming of the ventilator. The [employer] company has been contacted and we are waiting them to come in and adjust alarm settings. For now, we will keep the cuff partially inflated at 6 mL in order to limit alarming. There is still a significant cuff leak to the point the patient can talk without difficulty. Continue with home ventilator. Patient desires to be discharged home on hospice. Palliative care will be contacted. We will have discussion with family regarding CODE STATUS after palliative care has had a chance to talk with the patient. For now, continue patient is a full r esuscitation. 2. Tracheostomy placement: A Shiley #[address] in [address] This apparently has not been changed or modified since placement. At this time there is question of tracheomalacia or erosiveness secondary to long-term use of the cough. We will ask ENT to evaluate and assist with management of the tracheostomy tube regarding downsizing and modification. 3. Dysphagia/aspiration: Patient underwent video swallow study today with the cuff completely deflated on his tracheostomy tube. He was able to manage thin liquids without any evidence of aspiration. There was full discussion about possibility of aspiration, sequela of pneumonia, possibility of . Patient states that he fully understands risk versus benefit of eating and desires to continue to eat. Would recommend that the when this occur the cuff be deflated for oral consumption. Refer to #2 above regarding tracheostomy management by ENT. 4. Pleural effusion: Patient underwent ultrasound-guided thoracentesis with Dr. Moreno 11/17/2020. Fluid appeared to be exudative. Cytology is negative. Continue to monitor. If fluid continues to reaccumulate, patient may benefit from palliative Pleurx catheter placement. 5. PNA, tracheobronchitis: Patient does have positive E. coli in the urine as well as stenotrophomonas from the lung. He is currently on levofloxacin. We will continue this for a total of 10 days. Thank you for including us in the care of this patient. We will continue to follow along with you for now. Awaiting palliative care input. (2) Tracheostomy dependence: (3) Congestive heart failure: (4) Pleural effusion on right: Admission and Anticipated Discharge Date Admission Date: November 13, 2020 Subjective Patient seen and examined. EMR reviewed. Early this morning the patient had an episode of desaturation down to 70% range. I evaluated the patient at bedside. He was not moving air. We administered albuterol via his tracheostomy tube and I bagged him for a brief period of time. RT aggressively suctioned him. Chest x-ray was obtained which is noted below. I was making preparations to perform a bronchoscopy as a assumed given the acute nature of this event that it likely represented a mucous plug however during those preparations the patient spontaneously improved with oxygen saturations back in the mid 90s. He continues to complain of fairly significant diffuse pain. He did complete a video swallow study as noted below. Review of Systems Review of Systems: Please refer to hospitalist note Physical Exam Constitutional: WD/WN, vitals as above + cachectic and + physical limitations Eyes: EOM intact bilaterally; no conjunctival abnormality ENMT: external ear and nose normal, oropharynx normal Neck: trachea midline, no thyromegaly + tracheostomy present; + abnormal visual inspection Respiratory: no respiratory distress Auscultation: + crackles and + rales Cardiovascular: RRR, no murmur, no edema Gastrointestinal (Abdomen): Inspection/Auscultation: abdomen normal to inspection; abdomen not distended Musculoskeletal: Head/Neck/Chest: normocephalic and head atraumatic Extremities: extremities normal to inspection (Arms swollen) Skin: no rashes, warm and dry + ecchymosis Neurologic: moves all extremities and awake Psychiatric: Orientation: alert, oriented to person and cooperative Results & Data Results & Data ([facility]) Vital Signs (Past 12 Hours) Vital Signs Temp Pulse Pulse Pulse Resp BP Pulse Ox 11/20/20 10:44 36.9 C 102 H 20 108/39 L 98 11/20/20 07:51 36.6 C 66 18 115/51 L 100 11/20/20 07:50 88 15 100 11/20/20 03:13 36.8 C 97 H 24 104/50 L 98 Laboratory Results 11/20/20 05:19 11/20/20 05:19 Diagnostic Findings CXr independently reviewed. CLINICAL HISTORY: hypoxemia COMPARISON STUDY: 11/18/2020 FINDINGS: The heart is enlarged. There is a right pleural effusion with associated right basilar atelectasis/consolidation. Since the prior study, the patient developed airspace opacities within the left lung zone laterally. There is an indwelling tracheostomy tube.[A gastrostomy tube is visualized. IMPRESSION: 1. Cardiomegaly and suspected pulmonary vascular congestion 2. Right pleural effusion with associated right lower lobe atelec tasis/consolidation 3. Interval development of left lung airspace opacities, asymmetric pulmonary ed yuridia versus infectious/inflammatory PG Care Time/CCT Total # of Minutes Spent Total Time Spent with Patient: Total time spent is greater than 50% in coordination of care (as documented) at patient's floor/unit and/or counseling patient: Coding Level of Care Code 31956 Subseq Hosp Care Lvl 3 Diagnoses Ventilator dependent Z99.11 Tracheostomy dependence Z93.0 Congestive heart failure I50.9 Pleural effusion on right J90
[2020-11-20] MEDS: SERTRALINE HCL 100 MG TABLET PEG SCH (14:02)
[2020-11-20] MEDS: ONDANSETRON INJ 2 MG/ML 2 ML VIAL IV PRN (14:04)
--- NOTE | 2020-11-20 14:14 | Hospitalist Progress Note ---
Date of Service November 20, 2020 Assessment & Plan (1) Acute and chronic respiratory failure with hypoxia: Likely multifactorial but main culprit was bilateral pleural effusions. Patient is requiring vent support through trach, but as of 11/18, was at his baseline. - S/p thoracocentesis on 11/17/20. - Continue Lasix 40 mg IV daily -> Monitor I&Os, weights. Stable breathing today. Trach exchanged with ENT on 11/20. No complication during exchange. 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 Was in place at [facility] prior to admission. - Exchanged on 11/[address] Holguin with cuffed, fenestrated Shiley. (3) Edema of both upper arms: This was the patient's main acute complaint. Suspect multifactorial with malnutrition, reduced movement, poor venous, and lymphatic drainage. - As above for Lasix (4) Dysphagia: Clear liquids per patient request. - Speech consulted. - Video swallow on 11/19 showed no aspiration. Can go with full liquids or pured diet per speech. (5) Congestive heart failure: Acute on chronic diastolic CHF. - As above (6) Atrial fibrillation: Chronic per patient recollection. Unclear why he is not on anticoagulation for this. - Not on rate or rhythm control. - HR presently slightly high at ~100 bpm. - Will start metoprolol succinate 25 mg PO daily. (7) UTI (urinary tract infection): UTI due to chronic Dash catheter. - Continue levofloxacin (End date: 11/25/2019) - Will need catheter replaced while in hospital. (8) Chronic indwelling Dash catheter: No suprapubic pain to suggest UTI. - Usual care (9) Pleural effusion on right: S/p thoracentesis on 11/[address] Moreno. Light's criteria indicate exudative from total protein. Awaiting cytology. - Monitor with diuresis - Could be candidate for PleurX in a palliative setting (10) Hyperthyroidism: TSH was 0.009 on 11/13/2020; however, T4 was 1.61 (1.6 is normal). - Continue methimazole 2.5 mg p.o. daily. (11) Superficial venous thrombosis of left upper extremity: Doppler u/s on 11/13 showed partially occlusive superficial venous thrombus of the left cephalic vein. - Due to upper extremity and superficial thrombus, not treating with full anticoagulation. (12) Moderate malnutrition: Patient with moderate malnutrition, evidenced by mild loss of body fat and muscle and moderate to severe fluid accumulation. - Continue bolus tube feeds when feasible, boost breeze with meals, monitor wts and labs. (13) DVT prophylaxis: Lovenox 30 mg SQ daily Admission and Anticipated Discharge Date Admission Date: November 13, 2020 Subjective In pain after trach exchange. Reports no fevers/chills, chest pain, shortness of breath, abdominal pain, nausea, or vomiting. Physical Exam Constitutional: WD/WN, vitals as above + cachectic and + physical limitations Eyes: EOM intact bilaterally; no conjunctival abnormality ENMT: external ear and nose normal, oropharynx normal Neck: trachea midline, no thyromegaly + tracheostomy present; + abnormal visual inspection Respiratory: no respiratory distress Auscultation: + crackles and + rales Cardiovascular: RRR, no murmur, no edema Gastrointestinal (Abdomen): Inspection/Auscultation: abdomen normal to inspection; abdomen not distended Musculoskeletal: Head/Neck/Chest: normocephalic and head atraumatic Extremities: extremities normal to inspection (Arms swollen (improved)) Skin: no rashes, warm and dry + ecchymosis Neurologic: moves all extremities and awake Psychiatric: Orientation: alert, oriented to person and cooperative Results & Data Results & Data ([facility]) Vital Signs (Past 12 Hours) Vital Signs Temp Pulse Pulse Pulse Resp BP Pulse Ox 11/20/20 10:44 36.9 C 102 H 20 108/39 L 98 11/20/20 07:51 36.6 C 66 18 115/51 L 100 11/20/20 07:50 88 15 100 11/20/20 03:13 36.8 C 97 H 24 104/50 L 98 PG Care Time/CCT Total # of Minutes Spent Total Time Spent with Patient: Total time spent is greater than 50% in coordination of care (as documented) at patient's floor/unit and/or counseling patient: Coding Level of Care Code 20854 Subseq Hosp Care Lvl 3 Diagnoses Acute and chronic respiratory failure with hypoxia J96.[address] Z93.0 Edema of both upper arms R60.0 Dysphagia R13.10 Congestive heart failure I50.9 Atrial fibrillation I48.91 UTI (urinary tract infection) N39.0 Chronic indwelling Dash catheter Z97.8 Pleural effusion on right J90 Hyperthyroidism E05.90 Superficial venous thrombosis of left upper extremity I82.612 Moderate malnutrition E44.0 DVT prophylaxis Z29.9
[2020-11-20] MEDS: traMADol HCL 50 MG TABLET PO PRN ×2 (14:18→21:26)
[2020-11-20] MEDS: METOPROLOL SUCC 25MG EXT REL TAB PO SCH (15:40)
[2020-11-20] MEDS: PEPTAMEN 1.5 CAL 1,000 ML BAG PEG SCH (21:36)
[2020-11-21] MEDS: traMADol HCL 50 MG TABLET PO PRN ×4 (02:42→20:23)
[2020-11-21] MEDS: ONDANSETRON INJ 2 MG/ML 2 ML VIAL IV PRN ×2 (03:28→08:06)
[2020-11-21] MEDS: GABAPENTIN 250 MG/5 ML 470 ML BTL PO SCH ×3 (05:27→18:12)
[2020-11-21 05:43] LABS: Hematocrit (blood only) 27.9 % (42-52); Hemoglobin 8.6 g/dL (14.0-18.0); Mean Corpuscular Hemoglobin 30.9 pg (25-34); Mean Corpuscular Hgb Conc 30.8 g/dL (32-36); Mean Corpuscular Volume 100.4 fL (80-100); Mean Platelet Volume 11.1 fL (7.4-10.4); Platelet Count 141 K/uL (130-400); RDW Coefficient of Variation 14.9 % (11.5-14.5); RDW Standard Deviation 54.6 fL (36.4-46.3); Red Blood Count 2.78 M/uL (4.7-6.1)
[2020-11-21 06:08] LABS: BUN Creatinine Ratio 28.8 (10-20); Calcium 8.5 mg/dl (8.5-10.1); Creatinine Clr Calc Pharmacy 45.1 ml/min; Est GFR (African American) 67.1; Est GFR (Non-African American) 57.9; Potassium 3.6 mmol/L (3.5-5.1)
[2020-11-21] MEDS: ALBUT/IPRATROP 3MG/0.5MG NEB 3 ML VIAL INH SCH ×3 (07:09→23:31)
[2020-11-21] MEDS: FAMOTIDINE 20 MG TAB PO SCH ×2 (08:06→20:23)
[2020-11-21] MEDS: ACETAMINOPHEN 500 MG TAB PO SCH ×4 (08:06→20:23)
[2020-11-21] MEDS: guaiFENesin SUGAR FREE 200 MG/10 ML UDC PEG SCH ×3 (08:06→20:23)
[2020-11-21] MEDS: levoFLOXacin/D5W 250 MG/50 ML BAG IV SCH (08:07)
[2020-11-21] MEDS: LIDOCAINE 5% 1 PATCH TD SCH (08:08)
[2020-11-21] MEDS: FUROSEMIDE 40 MG in SYRINGE 0 ML IV SCH (08:08)
[2020-11-21] MEDS: ENOXAPARIN INJ 30 MG/0.3 ML SYR SQ SCH (08:08)
--- NOTE | 2020-11-21 08:08 | Pulmonology Progress Note ---
Date of Service November 21, 2020 Assessment & Plan (1) Ventilator dependent: Impression: This is an 80-year-old male with a complicated past medical history. He apparently was admitted to [facility] 4 months ago and developed respiratory failure from flash pulmonary edema. He was intubated and was unable to be successfully extubated so tracheostomy tube was placed. After he was medically stable, patient was transferred to [facility] in [facility]. He then underwent treatment at a long-term acute care facility. Patient was discharged home and developed further respiratory failure and was admitted to [facility] on 11/13/2020. He is currently on his home vent and a #6 Shiley cuffed tracheostomy tube. Recommendations: 1. Ventilator dependent respiratory failure: Continue home vent. 2. Tracheostomy placement: Trach changed by ENT. Management per otolaryngology. 3. Pleural effusion: Patient underwent ultrasound-guided thoracentesis 11/17/2020. Fluid appeared to be exudative. Cytology is negative. Continue to monitor. 4. PNA, tracheobronchitis: Patient does have positive E. coli in the urine as well as stenotrophomonas from the lung. He is currently on levofloxacin. We will continue this for a total of 10 days. Thank you for including us in the care of this patient. We will continue to follow along with you for now. Awaiting palliative care input. (2) Tracheostomy dependence: (3) Congestive heart failure: Admission and Anticipated Discharge Date Admission Date: November 13, 2020 Subjective Trach change yesterday. No specific issues. Patient continues to complain of diffuse pain. He states his breathing is at baseline. Is maintained on his home ventilator. Review of Systems Review of Systems: All systems reviewed & are unremarkable except as noted in HPI & below Physical Exam Constitutional: no acute distress Respiratory: normal respiratory effort, lungs clear to auscultation Cardiovascular: Rate/Rhythm: regular rate Heart Sounds: normal S1 and normal S2 Extremities: + edema Gastrointestinal (Abdomen): normal bowel sounds, soft, nontender, no hepatosplenomegaly Lymphatic: no cervical lymphadenopathy Results & Data Results & Data ([facility]) Vital Signs (Past 12 Hours) Vital Signs Temp Pulse Pulse Resp BP Pulse Ox 11/21/20 07:10 83 14 99 11/21/20 05:18 94 H 20 100 11/21/20 04:00 37.3 C 105 H 24 136/51 L 99 11/21/20 00:00 37.1 C 88 18 112/81 100 11/20/20 22:14 104 H 29 H 100 Laboratory Results 11/21/20 05:17 11/21/20 05:17 Diagnostic Findings No new imaging PG Care Time/CCT Total # of Minutes Spent Total Time Spent with Patient: Total time spent is greater than 50% in coordination of care (as documented) at patient's floor/unit and/or counseling patient: Coding Level of Care Code 16297 Subseq Hosp Care Lvl 2 Diagnoses Ventilator dependent Z99.11 Tracheostomy dependence Z93.0 Congestive heart failure I50.9
[2020-11-21] MEDS: methIMAzole 5 MG TABLET PO SCH (08:09)
[2020-11-21] MEDS: LANSOPRAZOLE 30 MG SOLTAB NG SCH (08:09)
[2020-11-21] MEDS: METOPROLOL SUCC 25MG EXT REL TAB PO SCH (11:03)
--- NOTE | 2020-11-21 13:09 | ENT Consultation ---
Date of Consultation November 21, 2020 Assessment & Plan (1) Tracheostomy dependence: Chart and labs and CT scans were reviewed. Discussed with Dr. Ulloa. Together we change the tracheostomy tube to a #6 cuffed fenestrated tracheostomy tube. This was done without difficulty. There was some evidence of biofilm on the old trach cuff but the balloon appears to be intact on the old trach. The leakage is most likely due to his position. It is still better to use a low pressure balloon on the trach cuff to prevent tracheomalacia. I will sign off on this patient for right now. Please contact me if any further ENT help is needed. (2) Ventilator dependent: History of Present Illness Reason for Consultation: Respiratory failure Attending Physician: Artemio Arvizu MD History of Present Illness This 80-year-old gentleman who had tracheostomy placed for respiratory failure at [facility] recently admitted here for respiratory failure and is ventilator dependent at home. He had a percutaneous trach. Even with the cuff inflated the patient is able to talk around it. Pulmonary requested trach change. Allergies Allergy/AdvReac Type Severity Reaction Status Date / Time oxycodone AdvReac Intermediate Hallucinati Verified 11/13/20 15:00 ons NARCOTICS AdvReac POSSIBLE Uncoded 11/13/20 16:41 HALLUCINATIONS Home Medications Medication Instructions Recorded Confirmed Type acetaminophen [Tylenol Extra 500 mg PO QID 11/13/20 11/13/20 History Strength] albuterol sulfate 2.5 mg INHALATION Q4H PRN 11/13/20 11/13/20 History bisacodyl 10 mg FEEDING TUBE QAM PRN 11/13/20 11/13/20 History furosemide [Lasix] 40 mg FEEDING TUBE QAM 11/13/20 11/13/20 History guaifenesin 200 mg PO TID 11/13/20 11/13/20 History ibuprofen 400 mg PO TID PRN 11/13/20 11/13/20 History ipratropium-albuterol 3 ml INHALATION QID 11/13/20 11/13/20 History methimazole 2.5 mg PO DAILY 11/13/20 11/13/20 History ondansetron [Zofran ODT] 4 mg TRANSLINGUAL Q4 PRN 11/13/20 11/13/20 History pantoprazole 20 mg PO DAILY 11/13/20 11/13/20 History polyethylene glycol 3350 [Miralax] 17 g FEEDING TUBE DAILY PRN 11/13/20 11/13/20 History sennosides [senna] 8.6 mg PO HS PRN 11/13/20 11/13/20 History sertraline 100 mg FEEDING TUBE DAILY 11/13/20 11/13/20 History simethicone 80 mg PO TID PRN 11/13/20 11/13/20 History Patient History Medical History (Updated 11/18/20 @ 06:24 by Juvenal Lozano) Atrial fibrillation Cellulitis Chronic indwelling Dash catheter Congestive heart failure Hematoma of right thigh History of lipoma Hyperthyroidism Phlebitis Recurrent UTI Tracheostomy in place Surgical History History of cholecystectomy History of thoracentesis History of tracheostomy Social History Smoking Status: Never smoker Hx Alcohol Use: No Hx Substance Use: No Preferred Language: French Communication Ability: Effective Communication Ability Comment: Tracheostomy with ability to speak Sample Puller Required: No Beliefs That Will Affect Care: Oriental Orthodox Oriental Orthodox Beliefs: Jehovah'S Witness Current Living Situation: Family Other Information That Helps Us Care for You: No Feels Safe at Home: Yes Safety Concerns: Feels Safe At This Time Gender Identity: Male Assistive Devices: Oxygen - Continuous Assistive Devices Comment: Home Ventilator Physical Exam Constitutional: + ill appearing Kyphoscoliosis with curvature of the head toward the right Eyes: PERRL, conjunctivae normal, anicteric sclerae ENMT: external ear and nose normal, oropharynx normal Neck: Tracheostomy tube in place but it is tilted toward his left. The CT scan showed the trach tilted toward the left due to scoliosis. Respiratory: + respiratory distress (He is ventilator dependent) Results & Data ([facility]) Vital Signs (Past 12 Hours) Vital Signs Temp Pulse Pulse Resp BP BP Pulse Ox 11/21/20 11:26 36.9 C 85 22 90/62 L 100 11/21/20 08:20 37.3 C 91 H 20 87/64 L 96 11/21/20 08:00 83 11/21/20 07:10 83 14 99 11/21/20 05:18 94 H 20 100 11/21/20 04:00 37.3 C 105 H 24 136/51 L 99
[2020-11-21] MEDS: SERTRALINE HCL 100 MG TABLET PEG SCH (15:26)
--- NOTE | 2020-11-21 15:41 | Heart Failure Consultation ---
Date of Consultation November 21, 2020 Assessment & Plan (1) Hypervolemia: (2) Ventilator dependent: (3) Atrial fibrillation: Patient has been referred to the heart failure program by the primary service for assistance with volume management on discharge. It is unclear if the patient truly carries a history of heart failure. It seems his home Lasix is primarily to manage his lower extremity edema secondary to phlebitis/venous insufficiency. Albumin levels are also low. He remains hypervolemic on exam, mainly peripheral edema. Continue Lasix 40 mg IV. Kidney function and electrolytes are stable. Would continue aggressive diuresis until creatinine rises while he is inpatient and can be easily monitored. Patient will be difficult to manage outpatient due to the complex nature of his case. Patient is unable to transport to office visits due to high out of pocket costs. They are agreeable to telehealth visits. He is unable to complete daily weights at home. His hospital bed does not have a built in scale. Hopefully he can be discharged with home health to help assist with vitals, exam, and labs. If we are unable to monitor with labs, we will be limited as to what we can offer. Spoke to the family in detail and they are grateful for the assistance. They understand our ability to manage his complex case remotely will be limited. Patient's PCP has recently retired and he essentially has no outpatient providers at this time. Overall patient has a poor prognosis. Family is aware and accepting of this. Patient will remain extremely high risk for hospital readmission. Should consider palliative approach with transition to hospice when they are ready. Disposition: Anticipate close follow up with the HF program via telehealth. History of Present Illness Attending Physician: Artemio Arvizu MD Mr. Sam is an 80 year old male who is ventilator dependent with tracheostomy, PEG, and chronic hale s/[facility] stay at [place]. Also history of atrial fibrillation, hyperthyroidism, clotting disorder, and malnutrition. According to the family he was [facility] which turned into a very complex stay in 2019. He was apparently retaining CO2 due to his chronic kyphosis. They were trying to trial him on BiPAP. He then had a spontaneous hematoma in his leg which led to hypotension, which lead to him being intubated. They also mentioned as they worked the fluid out of his legs he ended up with flash pulmonary edema. Patient was then discharged to [facility] in [place] from Aug-Oct. He was unable to be weaned from the vent after multiple trials. Patient was discharged to home about 1 month ago. His family members are his primary caregivers. Dorinda is managing his vent. He was active with [facility]. His son Skip states he has a history of heart failure "x 30 years." He takes Lasix but that is mainly for his lower extremity edema secondary to phlebitis. He has refused to see a satellite installer in the past. Patient is currently resting comfortably in his bed. He is able to communicate and answer all questions appropriately. He is stable on his home vent settings. He's negative 4.7 L this admission. Weight is down 10+ lb (bedscale weights). EF preserved, 60-65%. ProBNP elevated on admission at 4k. He's s/p thoracentesis on 11/17/20. He denies chest pain, palpitations. Allergies Allergy/AdvReac Type Severity Reaction Status Date / Time oxycodone AdvReac Intermediate Hallucinati Verified 11/13/20 15:00 ons NARCOTICS AdvReac POSSIBLE Uncoded 11/13/20 16:41 HALLUCINATIONS Home Medications Medication Instructions Recorded Confirmed Type acetaminophen [Tylenol Extra 500 mg PO QID 11/13/20 11/13/20 History Strength] albuterol sulfate 2.5 mg INHALATION Q4H PRN 11/13/20 11/13/20 History bisacodyl 10 mg FEEDING TUBE QAM PRN 11/13/20 11/13/20 History furosemide [Lasix] 40 mg FEEDING TUBE QAM 11/13/20 11/13/20 History guaifenesin 200 mg PO TID 11/13/20 11/13/20 History ibuprofen 400 mg PO TID PRN 11/13/20 11/13/20 History ipratropium-albuterol 3 ml INHALATION QID 11/13/20 11/13/20 History methimazole 2.5 mg PO DAILY 11/13/20 11/13/20 History ondansetron [Zofran ODT] 4 mg TRANSLINGUAL Q4 PRN 11/13/20 11/13/20 History pantoprazole 20 mg PO DAILY 11/13/20 11/13/20 History polyethylene glycol 3350 [Miralax] 17 g FEEDING TUBE DAILY PRN 11/13/20 11/13/20 History sennosides [senna] 8.6 mg PO HS PRN 11/13/20 11/13/20 History sertraline 100 mg FEEDING TUBE DAILY 11/13/20 11/13/20 History simethicone 80 mg PO TID PRN 11/13/20 11/13/20 History Patient History Medical History (Updated 11/21/20 @ 16:23 by Julissa Fu PA-C) Atrial fibrillation Cellulitis Chronic indwelling Hale catheter Congestive heart failure Hematoma of right thigh History of lipoma Hyperthyroidism Phlebitis Recurrent UTI Tracheostomy in place Surgical History History of cholecystectomy History of thoracentesis History of tracheostomy Social History Smoking Status: Never smoker Hx Alcohol Use: No Hx Substance Use: No Preferred Language: Slovak Communication Ability: Effective Communication Ability Comment: Tracheostomy with ability to speak Middleware Administrator Required: No Beliefs That Will Affect Care: Alevism Alevism Beliefs: Anabaptism Current Living Situation: Family Other Information That Helps Us Care for You: No Feels Safe at Home: Yes Safety Concerns: Feels Safe At This Time Gender Identity: Male Assistive Devices: Oxygen - Continuous Assistive Devices Comment: Home Ventilator Physical Exam Physical Exam: Constitutional: Alert, oriented, in no acute distress. Frail appearing HEENT: Head is atraumatic and normocephalic. EOMs intact. Sclera anicteric. Face is symmetric. No perioral cyanosis. Mucous membranes moist. Neck: Supple, + Tracheostomy. Difficult exam due to contraction. Pulmonary: Normal respiratory effort, Bibasilar crackles. Cardiac: Regular rate and rhythm. Normal S1 and S2, no gallops, no rubs, no murmurs Extremities: 2+ radial pulses bilaterally. 2+ posterior tibialis pulses bilaterally. 2-3+ pitting edema to the knees. 2+ edema in the RUE . No cyanosis or clubbing. Abdomen: Normal bowel sounds, soft, non-tender, no abdominal mass palpated Skin: Poor skin quality. Ecchymosis noted on all extremities. Venous stasis BLE with chronic pigmentation changes. Neurological: Patient is awake, alert, and oriented. Pleasant and cooperative. Answers questions appropriately. Results & Data ([facility]) Vital Signs (Past 12 Hours) Vital Signs Temp Pulse Pulse Resp BP BP Pulse Ox 11/21/20 15:19 98.4 F 85 20 97/71 L 100 11/21/20 11:26 98.4 F 85 22 90/62 L 100 11/21/20 08:20 99.2 F 91 H 20 87/64 L 96 11/21/20 08:00 83 11/21/20 07:10 83 14 99 11/21/20 05:18 94 H 20 100 11/21/20 04:00 99.1 F 105 H 24 136/51 L 99 Coding Level of Care Code 77767 Initial Inpt Care Lvl 3 Diagnoses Hypervolemia E87.70 Ventilator dependent Z99.11 Atrial fibrillation I48.91
--- NOTE | 2020-11-21 16:20 | Hospitalist Progress Note ---
Date of Service November 21, 2020 Assessment & Plan (1) Acute and chronic respiratory failure with hypoxia: Likely multifactorial but main culprit was bilateral pleural effusions. Patient is requiring vent support through trach, but as of 11/18, was at his baseline. - S/p thoracocentesis on 11/17/20. - Continue Lasix 40 mg IV daily -> Monitor I&Os, weights. Stable breathing today. Trach exchanged with ENT on 11/20. No complication during exchange. - Improving on the left arm. 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 Was in place at [facility] prior to admission. - Exchanged on 11/[address] Holguin with cuffed, fenestrated Shiley. (3) Edema of both upper arms: This was the patient's main acute complaint. Suspect multifactorial with malnutrition, reduced movement, poor venous, and lymphatic drainage. - As above for Lasix (4) Dysphagia: Clear liquids per patient request. - Speech consulted. - Video swallow on 11/19 showed no aspiration. Can go with full liquids or pured diet per speech. (5) Congestive heart failure: Acute on chronic diastolic CHF. - As above (6) Atrial fibrillation: Chronic per patient recollection. Unclear why he is not on anticoagulation for this. - Not on rate or rhythm control. - HR presently ~80 bpm. (7) UTI (urinary tract infection): UTI due to chronic Dash catheter. - Continue levofloxacin (End date: 11/25/2019) - Will need catheter replaced while in hospital. (8) Chronic indwelling Dash catheter: No suprapubic pain to suggest UTI. - Usual care (9) Pleural effusion on right: S/p thoracentesis on 11/[address] Moreno. Light's criteria indicate exudative from total protein. Awaiting cytology. - Monitor with diuresis - Could be candidate for PleurX in a palliative setting (10) Hyperthyroidism: TSH was 0.009 on 11/13/2020; however, T4 was 1.61 (1.6 is normal). - Continue methimazole 2.5 mg p.o. daily. (11) Superficial venous thrombosis of left upper extremity: Doppler u/s on 11/13 showed partially occlusive superficial venous thrombus of the left cephalic vein. - Due to upper extremity and superficial thrombus, not treating with full anticoagulation. (12) Moderate malnutrition: Patient with moderate malnutrition, evidenced by mild loss of body fat and muscle and moderate to severe fluid accumulation. - Continue bolus tube feeds when feasible, boost breeze with meals, monitor wts and labs. (13) DVT prophylaxis: Lovenox 30 mg SQ daily Admission and Anticipated Discharge Date Admission Date: November 13, 2020 Subjective Doing fine today. Having some leg pain. Reports no fevers/chills, chest pain, shortness of breath, abdominal pain, nausea, or vomiting. Physical Exam Constitutional: WD/WN, vitals as above + cachectic and + physical limitations Eyes: EOM intact bilaterally; no conjunctival abnormality ENMT: external ear and nose normal, oropharynx normal Neck: trachea midline, no thyromegaly + tracheostomy present; + abnormal visual inspection Respiratory: no respiratory distress Auscultation: + crackles and + rales Cardiovascular: RRR, no murmur, no edema Gastrointestinal (Abdomen): Inspection/Auscultation: abdomen normal to inspection; abdomen not distended Musculoskeletal: Head/Neck/Chest: normocephalic and head atraumatic Extremities: extremities normal to inspection (Arms swollen (improved)) Skin: no rashes, warm and dry + ecchymosis Neurologic: moves all extremities and awake Psychiatric: Orientation: alert, oriented to person and cooperative Results & Data Results & Data ([facility]) Vital Signs (Past 12 Hours) Vital Signs Temp Pulse Pulse Resp BP Pulse Ox 11/21/20 15:58 86 100 11/21/20 15:19 36.9 C 85 20 97/71 L 100 11/21/20 11:26 36.9 C 85 22 90/62 L 100 11/21/20 08:20 37.3 C 91 H 20 87/64 L 96 11/21/20 08:00 83 11/21/20 07:10 83 14 99 11/21/20 05:18 94 H 20 100 PG Care Time/CCT Total # of Minutes Spent Total Time Spent with Patient: Total time spent is greater than 50% in coordination of care (as documented) at patient's floor/unit and/or counseling patient: Coding Level of Care Code 73922 Subseq Hosp Care Lvl 2 Diagnoses Acute and chronic respiratory failure with hypoxia J96.[address] Z93.0 Edema of both upper arms R60.0 Dysphagia R13.10 Congestive heart failure I50.9 Atrial fibrillation I48.91 UTI (urinary tract infection) N39.0 Chronic indwelling Dash catheter Z97.8 Pleural effusion on right J90 Hyperthyroidism E05.90 Superficial venous thrombosis of left upper extremity I82.612 Moderate malnutrition E44.0 DVT prophylaxis Z29.9
[2020-11-22] MEDS: GABAPENTIN 250 MG/5 ML 470 ML BTL PO SCH ×3 (00:43→14:06)
[2020-11-22 04:56] LABS: Hematocrit (blood only) 27.7 % (42-52); Hemoglobin 8.7 g/dL (14.0-18.0); Mean Corpuscular Hemoglobin 31.3 pg (25-34); Mean Corpuscular Hgb Conc 31.4 g/dL (32-36); Mean Corpuscular Volume 99.6 fL (80-100); Mean Platelet Volume 10.5 fL (7.4-10.4); Platelet Count 131 K/uL (130-400); RDW Coefficient of Variation 14.8 % (11.5-14.5); RDW Standard Deviation 53.7 fL (36.4-46.3); Red Blood Count 2.78 M/uL (4.7-6.1); White Blood Count 6.44 K/uL (4.8-10.8)
[2020-11-22] MEDS: traMADol HCL 50 MG TABLET PO PRN ×3 (04:59→13:49)
[2020-11-22 05:24] LABS: BUN Creatinine Ratio 30.2 (10-20); Calcium 8.2 mg/dl (8.5-10.1); Creatinine Clr Calc Pharmacy 48.3 ml/min; Est GFR (African American) 73.1; Est GFR (Non-African American) 63.1; Potassium 3.5 mmol/L (3.5-5.1)
[2020-11-22] MEDS: ALBUT/IPRATROP 3MG/0.5MG NEB 3 ML VIAL INH SCH (07:51)
--- NOTE | 2020-11-22 09:28 | Pulmonology Progress Note ---
Date of Service November 22, 2020 Assessment & Plan (1) Ventilator dependent: Impression: This is an 80-year-old male with a complicated past medical history. He apparently was admitted to [facility] 4 months ago and developed respiratory failure from flash pulmonary edema. He was intubated and was unable to be successfully extubated so tracheostomy tube was placed. After he was medically stable, patient was transferred to [facility] in [facility]. He then underwent treatment at a long-term acute care facility. Patient was discharged home and developed further respiratory failure and was admitted to [facility] on 11/13/2020. He is currently on his home vent and a #6 Shiley cuffed tracheostomy tube. Recommendations: 1. Ventilator dependent respiratory failure: Continue home vent. Patient will need to follow-up with whichever pulmonary providers have been signing the orders for his home ventilator previously 2. Tracheostomy placement: Trach changed by ENT. Management per otolaryngology. 3. Pleural effusion: Patient underwent ultrasound-guided thoracentesis 11/17/2020. Fluid appeared to be exudative. Cytology is negative. Continue to monitor. Suspect related to fluid overload and poor nutritional status 4. PNA, tracheobronchitis: Patient does have positive E. coli in the urine as well as stenotrophomonas from the lung. He is currently on levofloxacin. We will continue this for a total of 10 days. Thank you for including us in the care of this patient. Please call if we can be of additional assistance (2) Tracheostomy dependence: (3) Congestive heart failure: Admission and Anticipated Discharge Date Admission Date: November 13, 2020 Subjective No new complaints other than his chronic pain issues. He is doing well on his home vent. No respiratory issues over the last 24 hours Review of Systems Review of Systems: All systems reviewed & are unremarkable except as noted in HPI & below Physical Exam Constitutional: no acute distress Respiratory: normal respiratory effort, lungs clear to auscultation Cardiovascular: Rate/Rhythm: regular rate Heart Sounds: normal S1 and normal S2 Extremities: + edema Gastrointestinal (Abdomen): normal bowel sounds, soft, nontender, no hepatosplenomegaly Lymphatic: no cervical lymphadenopathy Results & Data Results & Data ([facility]) Vital Signs (Past 12 Hours) Vital Signs Temp Pulse Pulse Pulse Resp BP BP 11/22/20 08:00 93 H 17 11/22/20 07:52 37.0 C 86 12 137/77 11/22/20 07:50 84 17 11/22/20 04:00 36.8 C 82 15 126/65 11/21/20 23:41 15 11/21/20 23:40 36.9 C 94 H 20 153/62 H Pulse Ox 11/22/20 08:00 100 11/22/20 07:52 98 11/22/20 07:50 100 11/22/20 04:00 96 11/21/20 23:41 11/21/20 23:40 100 Laboratory Results 11/22/20 04:36 11/22/20 04:36 Diagnostic Findings No updated imaging PG Care Time/CCT Total # of Minutes Spent Total Time Spent with Patient: Total time spent is greater than 50% in coordination of care (as documented) at patient's floor/unit and/or counseling patient: Coding Level of Care Code 02504 Subseq Hosp Care Lvl 2 Diagnoses Ventilator dependent Z99.11 Tracheostomy dependence Z93.0 Congestive heart failure I50.9
[2020-11-22] MEDS: levoFLOXacin/D5W 250 MG/50 ML BAG IV SCH (09:37)
[2020-11-22] MEDS: LANSOPRAZOLE 30 MG SOLTAB NG SCH (09:38)
[2020-11-22] MEDS: guaiFENesin SUGAR FREE 200 MG/10 ML UDC PEG SCH (09:38)
[2020-11-22] MEDS: ENOXAPARIN INJ 30 MG/0.3 ML SYR SQ SCH (09:38)
[2020-11-22] MEDS: methIMAzole 5 MG TABLET PO SCH (09:38)
[2020-11-22] MEDS: LIDOCAINE 5% 1 PATCH TD SCH (09:38)
[2020-11-22] MEDS: FAMOTIDINE 20 MG TAB PO SCH (09:38)
[2020-11-22] MEDS: FUROSEMIDE 40 MG in SYRINGE 0 ML IV SCH (09:38)
[2020-11-22] MEDS: ACETAMINOPHEN 500 MG TAB PO SCH ×2 (09:39→13:49)
--- NOTE | 2020-11-22 17:53 | Discharge Summary ---
Date of Service November 22, 2020 Admission HPI Per Admitting Provider Luis Fernando Sam is an 80 year old male who presents to the ER with shortness of breath, bilateral upper extremity edema with associated pain. He is medically complex and new to this hospital electronic health record with a tracheostomy, feeding tube and Dash catheter after a recent 4-month hospitalization at [facility] (presumably [facility]) of which the discharge summaries are not available on admission. Therefore history is taken from the patient and both sons and is therefore incomplete. Prior to this prolonged hospitalization he reports a history of congestive heart failure (previously refused to see a carpet cleaner), phlebitis (on chronic anticoagulation) and hyperthyroidism. Approximately 4 months ago he was hospitalized with a right thigh hematoma which presumably he became septic from. Unclear of the details but possibly had IV fluids causing flash pulmonary edema with right lung collapse leading to intubation. Unclear whether he had surgery to drain the right thigh hematoma but his son has been packing this wound at home. Underwent thoracocentesis with 2 L fluid removed (reportedly not hemothorax). He was unable to be extubated and underwent tracheostomy placement. He continued to be dependent on positive pressure ventilation and was subsequently transferred to LTAC in [place]. He was discharged home approximately 1 month ago to his son's house with his family taking care of his home ventilator. His PCP still manages his medication and they buy their own tube feeds. A home nurse comes in twice a week but they have been actively trying to get more help. Today his main concerns are his tracheostomy (possible has come out slightly, shortness of breath following a vomiting episode at home. His son's (Braulio) main concern is his bilateral upper extremity edema. Principal Diagnosis Respiratory failure Discharge Exam Constitutional WD/WN, vitals as above + cachectic and + physical limitations Eyes EOM intact bilaterally; no conjunctival abnormality ENMT external ear and nose normal, oropharynx normal Neck trachea midline, no thyromegaly + tracheostomy present; + abnormal visual inspection Respiratory no respiratory distress Auscultation: + crackles and + rales Cardiovascular RRR, no murmur, no edema Gastrointestinal (Abdomen) Inspection/Auscultation: abdomen normal to inspection; abdomen not distended Musculoskeletal Head/Neck/Chest: normocephalic and head atraumatic Extremities: extremities normal to inspection (Arms swollen (improved)) Skin no rashes, warm and dry + ecchymosis Neurologic moves all extremities and awake Psychiatric Orientation: alert, oriented to person and cooperative Discharge Data Allergies Allergy/AdvReac Type Severity Reaction Status Date / Time oxycodone AdvReac Intermediate Hallucinati Verified 11/13/20 15:00 ons NARCOTICS AdvReac POSSIBLE Uncoded 11/13/20 16:41 HALLUCINATIONS Consultations 11/13/20 16:27 ED Decision to Admit Stat 11/13/20 16:43 Consult Pulmonology Routine 11/13/20 20:37 Consult Health Information Management Routine 11/16/20 18:42 Consult Admissions Clerk Routine 11/19/20 17:00 Consult Otolaryngology (Head and Neck) Routine 11/19/20 18:01 [facility] [place] CHF Program Referral Routine Ordered Studies 11/13/20 14:58 US venous doppler UE BI Stat 11/14/20 07:38 CT chest diagnostic wo con Routine 11/17/20 10:36 US point of care ultrasound Urgent 11/19/20 13:30 FL video swallow Routine Hospital Course (1) Acute and chronic respiratory failure with hypoxia: Likely multifactorial but main culprit was bilateral pleural effusions. Patient is requiring vent support through trach, but as of 11/18, was at his baseline. - S/p thoracocentesis on 11/17/20. - Continue Lasix 40 mg IV daily -> Monitor I&Os, weights. Stable breathing today. Trach exchanged with ENT on 11/20. No complication during exchange. - Improving on the left arm. - Will follow with Julissa Fu via tele-health. 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 Was in place at [facility] prior to admission. - Exchanged on 11/[address] Holguin with cuffed, fenestrated Shiley. (3) Edema of both upper arms: This was the patient's main acute complaint. Suspect multifactorial with malnutrition, reduced movement, poor venous, and lymphatic drainage. - As above for Lasix (4) Dysphagia: Clear liquids per patient request. - Speech consulted. - Video swallow on 11/19 showed no aspiration. Can go with full liquids or pured diet per speech. (5) Congestive heart failure: Acute on chronic diastolic CHF. - As above (6) Atrial fibrillation: Chronic per patient recollection. Unclear why he is not on anticoagulation for this. - Not on rate or rhythm control. - HR presently ~80 bpm. (7) UTI (urinary tract infection): UTI due to chronic Dash catheter. - Continue levofloxacin (End date: 11/25/2019) - Replaced while in hospital. - After abx, he can try methenamine which can lower risk of UTIs. Should probably on do for 2 weeks before re-evaluation. It's not really meant to be a long-term med for people with CKD. (8) Chronic indwelling Dash catheter: No suprapubic pain to suggest UTI. - Usual care (9) Pleural effusion on right: S/p thoracentesis on 11/[address] Moreno. Light's criteria indicate exudative from total protein. Awaiting cytology. - Monitor with diuresis - Could be candidate for PleurX in a palliative setting (10) Hyperthyroidism: TSH was 0.009 on 11/13/2020; however, T4 was 1.61 (1.6 is normal). - Continue methimazole 2.5 mg p.o. daily. (11) Superficial venous thrombosis of left upper extremity: Doppler u/s on 11/13 showed partially occlusive superficial venous thrombus of the left cephalic vein. - Due to upper extremity and superficial thrombus, not treating with full anticoagulation. (12) Moderate malnutrition: Patient with moderate malnutrition, evidenced by mild loss of body fat and muscle and moderate to severe fluid accumulation. - Continue bolus tube feeds when feasible, boost breeze with meals, monitor wts and labs. (13) DVT prophylaxis: Lovenox 30 mg SQ daily Total Time Total Time Spent Total Time Spent (In Minutes): 35 Discharge Plan Discharge Items Patient Disposition: Home - Home Health Services Reason For Visit: ACUTE ON CHRONIC HYPOXIC RESP FAILURE Discharge Diagnosis: Breathing trouble Condition on Discharge: Fair Activity: Resume your previous activity Non-emergency contact: Primary Care Provider Call non-emergency contact if: your symptoms worsen Follow-up/Referrals: Julissa Fu PA-C [Physician Jacker Feeder] - 11/26/20 10:30 am (THIS IS A VIRTUAL APPT) Renzo Tavarez MD [Primary Care Provider] - Diet: Heart Healthy and Low Sodium (2gm) Diet Texture: Pureed (blended smooth) Addtl Attending Provider Instructions: Take the levofloxacin for 4 more days starting tomorrow morning. It can be crushed and put in the PEG tube without problem. The day after the levofloxacin is done, please start the methenamine. It is twice a day. I have sent a 2 week course. It should not be taken longer than this unless Mr. Sam's PCP feels it is safe and working well. Ideally, the catheter can come out at some point to avoid giving a bacteria a pathway into the bladder, but I also understand that it is hard and quite painful to turn and clean Mr. Sam. Please follow up with the lung doctor who initially ordered the home ventilator to lower settings and hopefully get him off the ventilator eventually. Addtl Barrel Roller Provider Instructions: Call your Primary Care doctor if any of the following symptoms or problems start or get worse: * Shortness of breath or difficulty breathing * Wake up at night short of breath * Chest pain * Cough * Swelling of your hands, feet, or legs * More fatigued or tired with your normal activity * Palpitations - sudden fast heart beats WEIGHT * Weigh yourself every morning after using the bathroom. * Use the same scale. * Wear the same amount of clothing. * Write your weight down on a chart. * Call your Primary Care doctor if you gain more than 2-3 pounds in 1-2 days. MEDICATIONS * Use this discharge instruction sheet for medication instructions. * Take your medications at the time your doctor ordered. * Do not skip a dose of your medicines. * If you miss a dose of medicine, take it as soon as possible, but DO NOT DOUBLE A DOSE. * Read your medicine information when you get home. * Know all of the side effects of your medicine. If in doubt, ask your pharmacist * Call your Primary Care doctor's office if you have any side effects. * Be sure all of your doctors know what medicine and herbs you take (including cold, flu, and herbal medicine). Take the following with you to your follow-up doctor appointments: * Weight Chart * Medication List * List of questions Do not drink excessive alcohol, beer or wine. Pending Studies at Discharge: No Stand-Alone Forms: My Imagistx, Smoking Cessation Medications and DC Order Prescriptions: New gabapentin 250 mg/5 mL Solution 250 mg PO TID Qty: 470 RF: 0 tramadol 50 mg Tablet 50 mg PO Q4H PRN (Reason: pain) Qty: 20 RF: 0 furosemide 20 mg tablet 60 mg PO DAILY Qty: 90 RF: 0 levofloxacin 250 mg tablet 250 mg PO DAILY Qty: 4 RF: 0 methenamine hippurate 1 gram tablet 1 g PO BID Qty: 28 RF: 0 Continued sennosides [senna] 8.6 mg Tablet 8.6 mg PO HS PRN (Reason: Constipation) RF: 0 ipratropium-albuterol 0.5 mg-3 mg(2.5 mg base)/3 mL Solution For Nebulization 3 ml INHALATION QID RF: 0 albuterol sulfate 2.5 mg /3 mL (0.083 %) Solution For Nebulization 2.5 mg INHALATION Q4H PRN (Reason: Shortness Of Breath) RF: 0 polyethylene glycol 3350 [Miralax] 17 gram Powder In Packet 17 g feeding tube DAILY PRN (Reason: Constipation) RF: 0 sertraline 100 mg Tablet 100 mg feeding tube DAILY RF: 0 acetaminophen [Tylenol Extra Strength] 500 mg Tablet 500 mg PO QID RF: 0 guaifenesin 200 mg Tablet 200 mg PO TID RF: 0 pantoprazole 20 mg Tablet,Delayed Release (Dr/Ec) 20 mg PO DAILY RF: 0 ibuprofen 200 mg Tablet 400 mg PO TID PRN (Reason: Pain) RF: 0 methimazole 5 mg Tablet 2.5 mg PO DAILY RF: 0 ondansetron 4 mg Tablet,Disintegrating 4 mg translingual Q4 PRN (Reason: Nausea) RF: 0 bisacodyl 5 mg Tablet 10 mg feeding tube QAM PRN (Reason: Constipation) RF: 0 simethicone 80 mg Tablet 80 mg PO TID PRN (Reason: GAS/BLOATING) RF: 0 Discontinued furosemide [Lasix] 40 mg Tablet 40 mg feeding tube QAM RF: 0 Discharge Orders: Discharge Order (Routine); Ordered 11/22/20 Ordered By: Artemio Maria/Other Patient Handouts: Cleaning Your Tracheostomy, Suctioning Your Tracheostomy, Tracheostomy Care, Understanding PEG Tube Feeding, Tracheostomy TubeStoma Care, Discharge Instructions Using an ..., Tramadol tablets, Levofloxacin tablets Admission Data Admit Date/Time: 11/13/20 18:26 Attending Provider: Artemio Arvizu Admit Provider: Andrea Pino Primary Care Provider: Renzo Tavarez Other Providers: Artemio Arvizu ; Andrea Pino ; Aki Ghosh ; Chandler Lau ; Frances Holguin ; Julissa Fu Other Interventions: Discharge Summary Assessment (RN) Last Done: 11/22/20 13:22 Coding Level of Care Code D/C Day Management >30 mins Diagnoses Acute and chronic respiratory failure with hypoxia J96.[address] Z93.0 Edema of both upper arms R60.0 Dysphagia R13.10 Congestive heart failure I50.9 Atrial fibrillation I48.91 UTI (urinary tract infection) N39.0 Chronic indwelling Dash catheter Z97.8 Pleural effusion on right J90 Hyperthyroidism E05.90 Superficial venous thrombosis of left upper extremity I82.612 Moderate malnutrition E44.0 DVT prophylaxis Z29.9
--- NOTE | 2020-12-03 08:08 | Coding Query ---
To promote full compliance with coding requirements relating to patient care, provider participation is requested in all cases of violin repairer uncertainty. Please assist us with the question(s) below: Coding Question: Aspiration Pneumonia was documented in the H&P and progress notes until 11/18, then subsequently fell off all further documentation. Please indicate if it is still a possible diagnosis or ruled out. Thank you for your help! ASPIRATION PNEUMONIA ( ) Diagnosed and POA ( ) Diagnosed and not POA ( x ) Ruled out ( ) Other (please specify) MTDD
== END 2020-11-22 14:45 | disposition home health service (06) | DRG 207 ==
LOC: ED 14:41 → 1E 18:26 → SUATTDRO 18:26 → 1E 19:13 → 2S 11-15 01:36 → 1E 11-15 14:06